=== PATIENT | female | born 1990 | race Caucasian/White ===

== ENCOUNTER 2019-06-03 21:12 | Emergency (ER) | payer OTHER, SELFPAY ==
--- NOTE | ~2019-06-03 | XR_ITS ---
EXAMINATION: XR chest 2V DATE: 06/03/2019 23:10 INDICATION: Cough. Flu positive. TECHNIQUE: PA and lateral views of the chest were obtained. COMPARISON: Chest radiograph dated 08/03/2017 FINDINGS: The lungs remain clear with no focal airspace opacities, pulmonary edema, pleural effusion or pneumot horax. The cardiomediastinal silhouette is normal. Visualized bones and soft tissues are unremarkable . IMPRESSION: 1. Normal chest radiograph. Reviewed, dictated and finalized at location A. RUMENT MAINTENANCE SUPERVISOR IMPRESSION: 1. Normal chest radiograph.
[2019-06-03 21:15] VITALS: BP 136/99; PULSE 88; RESP 18; TEMP 37.1; O2SAT 100
--- NOTE | 2019-06-03 21:26 | ED.URI ---
HPI - URI/Sore Throat General Chief Complaint: Upper Respiratory Infection Stated Complaint: cough Time Seen by Provider: 06/03/19 21:26 Source: patient Mode of arrival: ambulatory Limitations: no limitations History of Present Illness HPI Narrative: The pt is a 28 y/o female who presents to the ED c/o cough onset three days ago. Pt states that she went to her PCP's office for this complaint and CP, where she received a flu swab but no CXR. Pt states that the flu swab was negative, and she received a Zpak for her cough. She also notes that she has taken some DayQuil. Pt states today, she has begun to have a productive cough, along with a choking sensation and SOB. Pt reports CP still, noting it is present when she coughs as well. She reports diaphoresis, chills, sore throat, rhinorrhea, and ALTMAN. She denies N/V/D. MD elicited complaint: cough Onset (ago): day(s) (3) Relieving factors: nothing Associated symptoms: chills, diaphoresis, headache, sore throat, chest pain (Present when she coughs as well), shortness of breath and other (Rhinorrhea, choking sensation) Treatments prior to arrival: cold medicine (DayQuil) and antibiotics Related Data Allergies Allergy/AdvReac Type Severity Reaction Status Date / Time No Known Allergies Allergy Verified 06/03/19 21:34 Review of Systems Review of Systems: All systems reviewed & are unremarkable except as noted in HPI and below Constitutional: Constitutional: Reports chills and Reports excessive sweating ENT: Reports sore throat and Reports other (Rhinorrhea) Cardiovascular: Cardiovascular: Reports chest pain (With coughing as well) Respiratory: Respiratory: Reports cough (Productive) and Reports dyspnea Gastrointestinal: Gastrointestinal: Denies diarrhea, Denies nausea, Denies vomiting and Reports other (Choking sensation) Neurologic: Reports headache(s) PMFSH Past Medical History Medical History (Updated 06/03/19 @ 23:26 by Patt Carney MD) Hyperthyroidism Surgical History Surgical History (Updated 06/03/19 @ 21:29 by Dom Couch) No history of previous surgery Social History Social History (Updated 06/03/19 @ 21:33 by Dom Couch) Smoking status: Never smoker Comments PCP: Dr. Sutton Exam Const: General: cooperative, no acute distress and alert Nutritional Appearance: well nourished Orientation/consciousness: patient oriented x3 Limitations: no limitations HENMT: Mouth: Yes moist mucous membranes and Yes other (Mild pharyngeal erythema) Resp: Effort & Inspection: normal respiratory effort Auscultation: diminished lung sounds bilateral Cardio: Rate: regular rate Rhythm: regular rhythm GI: GI Palp: Yes Soft to palpation and No Tenderness to palpation present (GI) Auscultation: normal bowel sounds Skin: General skin exam: normal color Neuro: General: patient oriented x3 Cognition (Neuro): normal cognition Speech: normal speech Extrem: General: normal to inspection, full ROM and no clubbing, cyanosis or edema Psych: Mental Status: mental status grossly normal Affect: normal affect Attitude: cooperative Course Course Emergency Course: Patient given nebulizer treatment and instructed on MDI use with spacer by respiratory therapist. Patient advised diagnosis of influenza B and symptomatic management. Patient is nontoxic in appearance and appropriate for outpatient care. Patient is beyond time window where she would benefit from antivirals and she does not have any comorbidities that would necessitate antivirals beyond the initial 48-hour time window in which she would get benefit. Vital Signs Vital signs: Vital Signs Temperature 98.8 F 06/03/19 21:15 Pulse Rate 88 06/03/19 21:15 Respiratory Rate 18 06/03/19 21:15 Blood Pressure 136/99 H 06/03/19 21:15 Pulse Oximetry 100 06/03/19 21:15 Temperature 98.8 F 06/03/19 21:15 Pulse Rate 78 06/03/19 22:42 Respiratory Rate 18 06/03/19 22:42 Blood Press
[2019-06-03 22:03] VITALS: PULSE 82; RESP 18
[2019-06-03] MEDS: ALBUTEROL SULFATE NEB 2.5 MG/0.5 ML INH 5 MG INHALATION (22:03)
[2019-06-03] MEDS: IPRATROPIUM BR 0.02% INH SOLN 0.5 MG/2.5 ML VIAL INHALATION (22:03)
[2019-06-03 22:15] VITALS: PULSE 86; RESP 18
[2019-06-03 22:42] VITALS: BP 115/70; PULSE 78; RESP 18; O2SAT 100
[2019-06-03 23:44] VITALS: BP 128/74; PULSE 88; RESP 20; TEMP 37.1; O2SAT 99
== END 2019-06-03 23:48 | disposition home or self-care (01) ==
PROVIDERS: Emergency Provider Emergency Medicine; PCP Internal Medicine
DX: J10.1 Influenza due to other identified influenza virus with other respiratory manifestations (principal)
CPT/HCPCS: 71046; 87804; 94640; 99283

== ENCOUNTER 2021-11-03 22:39 | Emergency (ER) | payer BC, SELFPAY ==
[2021-11-03 22:43] VITALS: BP 138/97; PULSE 95; RESP 18; TEMP 36.4; O2SAT 100
--- NOTE | 2021-11-03 23:30 | ED.GENADULT ---
HPI - General Adult General Chief complaint: Unspecified Stated complaint: has COVID has not slept in 2 days Time Seen by Provider: 11/03/21 22:42 History of Present Illness HPI narrative: 31-year-old female presented the emergency room complaints of insomnia. Patient states that she has not slept for the last 2 days. Patient states that she took a NyQuil tonight and slept for about 30 minutes. Recently diagnosed with COVID, so she is experiencing sinus congestion, postnasal drip, and a productive cough. Related Data Allergies Allergy/AdvReac Type Severity Reaction Status Date / Time No Known Allergies Allergy Verified 06/03/19 21:34 Review of Systems Review of Systems: CONSTITUTIONAL: Denies fever, chills, or sweats. EYES: Denies visual changes, redness, or discharge. ENT: Reports rhinorrhea, congestion, sore throat, or otalgia. CARDIOVASCULAR: Denies chest pain, palpitations, or edema. RESPIRATORY: Reports cough GASTROINTESTINAL: Denies abdominal pain, nausea, vomiting, or diarrhea. GENITOURINARY: Denies dysuria or hematuria. SKIN: Denies rash or itching. MUSCULOSKELETAL: Denies back pain, joint pain, or myalgia. NEUROLOGIC: Denies headache, numbness, dizziness, or weakness. PSYCHIATRIC: Denies anxiety or depression. PMFSH Past Medical History Medical History Hyperthyroidism Surgical History Surgical History No history of previous surgery Social History Social History Smoking status: Never smoker Exam Narrative: GENERAL: Well-appearing, well-nourished, no physical limitations, and in no acute distress. HEAD: Normocephalic, atraumatic. EYES: Conjunctivae normal, PERRLA and EOMI. CHEST: Clear to auscultation. No respiratory distress. No wheezes rales or rhonchi. No tenderness. HEART: Regular rate and rhythm. No murmur heard. Normal peripheral pulses. BACK: No CVA tenderness; No cervical/thoracic/lumbar tenderness, step-offs, bony abnormality; FROM EXTREMITIES: Normal range of motion. No edema. No clubbing or cyanosis SKIN: Warm, dry, no rash. No noted wounds NEURO: No focal deficits. Alert and oriented x3. MAEW. CN's II-XI intact bilaterally, normal gait PSYCH: Cooperative. Anxious. Course Vital Signs Vital signs: Vital Signs Temperature 36.4 C 11/03/21 22:43 Pulse Rate 95 11/03/21 22:43 Respiratory Rate 18 11/03/21 22:43 Blood Pressure 138/97 H 11/03/21 22:43 Pulse Oximetry 100 11/03/21 22:43 Oxygen Delivery Room Air 11/03/21 22:43 Temperature 36.4 C 11/03/21 22:43 Pulse Rate 95 11/03/21 22:43 Respiratory Rate 18 11/03/21 22:43 Blood Pressure 138/97 H 11/03/21 22:43 Pulse Oximetry 100 11/03/21 22:43 Oxygen Delivery Room Air 11/03/21 22:43 Medical Decision Making Vital Signs Vital Signs: Vital Signs Temperature 36.4 C 11/03/21 22:43 Pulse Rate 95 11/03/21 22:43 Respiratory Rate 18 11/03/21 22:43 Blood Pressure 138/97 H 11/03/21 22:43 Pulse Oximetry 100 11/03/21 22:43 Oxygen Delivery Room Air 11/03/21 22:43 Temperature 36.4 C 11/03/21 22:43 Pulse Rate 95 11/03/21 22:43 Respiratory Rate 11/03/21 22:43 Blood Pressure 138/97 H 11/03/21 22:43 Pulse Oximetry 100 11/03/21 22:43 Oxygen Delivery Room Air 11/03/21 22:43 Discharge Plan Discharge Clinical Impression: Insomnia Patient Disposition: Home, Self-Care Condition: Stable Instructions: Antibiotic Form, Insomnia (ED) Prescriptions: New trazodone 50 mg tablet 50 mg PO HS Qty: 30 0RF No Action albuterol sulfate 90 mcg/actuation HFA aerosol inhaler 2 - 4 puff INHALATION Q4H PRN (Reason: shortness of breath or wheezing) Qty: 18 0RF guaifenesin 1,200 mg tablet extended release 12hr 1,200 mg PO BID Qty: 20 0RF Follow-up/Referrals: Michael,Roula
[2021-11-04] MEDS: traZODone HCL 50 MG TABLET PO (00:06)
[2021-11-04 00:10] VITALS: BP 128/89; PULSE 85; RESP 16; O2SAT 100
== END 2021-11-04 00:09 | disposition home or self-care (01) ==
LOC: ANHED 11-04 00:01
PROVIDERS: Emergency Provider Nurse Practitioner Family; PCP Internal Medicine
DX: U07.1 COVID-19 (principal); G47.00 Insomnia, unspecified; E05.90 Thyrotoxicosis, unspecified without thyrotoxic crisis or storm
CPT/HCPCS: 99283; A9270

== ENCOUNTER 2023-04-27 00:41 | Emergency (ER) | payer BC, SELFPAY ==
--- NOTE | ~2023-04-27 | XR_ITS ---
XR chest 2V DATE: 04/27/2023 01:41 INDICATION: Chest tightness. Nose bleed. Weakness. TECHNIQUE: 2 views COMPARISON: June 03, 2019 2 view chest FINDINGS: Normal heart size. No hilar or mediastinal enlargement. No pulmonary infiltrate or consolid ation, pleural effusion or pulmonary vascular congestion or pneumothorax is detected. Surgical clips, lower cervical area, not present on June 03, 2019. Included skeletal structures are unremarkable. IMPRESSION: No active cardiopulmonary disease Postoperative change of the neck since June 03, 2019 Reviewed, dictated and finalized at location A. WORKER
[2023-04-27 00:45] VITALS: BP 130/91; PULSE 78; RESP 15; TEMP 36.2; O2SAT 100
--- NOTE | 2023-04-27 00:55 | ECG_ITS ---
Measurements Intervals [place] Rate: 80 P: 67 TX: 120 QRS: 39 QRSD: 117 T: -16 QT: 373 QTc: 431 Interpretive Statements SINUS RHYTHM INCOMPLETE RIGHT BUNDLE BRANCH BLOCK BORDERLINE ST-T WAVE ABNORMALITY- ANTEROLAT/INF LEADS BORDERLINE ECG NO PREVIOUS ECG AVAILABLE FOR COMPARISON Electronically Signed On 04-27-2023 8:17:32 AIRCRAFT ARMAMENT MECHANIC by Art Rosenthal D.O.
[2023-04-27 01:33] LABS: Basophils Percent Auto 0.6 % (0.2-1.2); Eosinophils Percent Auto 0.5 % (0-4.4); Hematocrit 41.6 % (37.0-47.0); Hemoglobin 13.8 g/dL (12.0-15.0); Immature Granulocyte Absolute 0.01 K/mm3 (0.00-0.031); Immature Granulocyte Percent A 0.2 % (0-0.5); Lymphocytes Percent Auto 23.4 % (18.3-44.2); Mean Corpuscular HGB Conc 33.2 g/dl (32-36); Mean Corpuscular Hemoglobin 27.9 pg (26-34); Monocytes Absolute Auto 0.5 K/mm3 (0.1-0.6); Monocytes Percent Auto 7.8 % (2.6-8.5); Neutrophils Absolute Auto 4.3 K/mm3 (1.3-6.7); Neutrophils Percent Auto 67.5 % (45.5-73.1); Platelet Count Result 212 k/mm3 (150-375); Red Blood Count 4.95 M/mm3 (4.2-5.4); Red Cell Distribution Width 12.4 % (11.5-14.5); White Blood Count 6.4 K/mm3 (4.5-10.0)
[2023-04-27 01:42] LABS: Prothrombin Time 13.3 Seconds (11.1-14.7)
[2023-04-27 01:43] LABS: Partial Thromboplastin Time 33.2 SECONDS (22.3-36.8)
[2023-04-27 01:50] LABS: Alanine Aminotransferase 12 U/L (6-35); Albumin Level 4.7 g/dL (3.5-5.1); Alkaline Phosphatase 59 U/L (38-126); Anion Gap 11 mmol/L (8-16); Aspartate Amino Transferase 22 U/L (14-36); Bilirubin,Total 0.5 mg/dL (0.2-1.3); Blood Urea Nitrogen 9 mg/dL (7-17); Calcium 9.4 mg/dL (8.4-10.2); Carbon Dioxide 31 mmol/L (22-30); Chloride 96 mmol/L (98-107); Estimated CRCL calculation 85 ml/min; Estimated Glomerular Filt Rate > 60; Glucose 106 mg/dL (65-110); Lipase 64 U/L (23-300); Potassium 3.7 mmol/L (3.4-5.0); Sodium 138 mmol/L (137-145)
[2023-04-27 02:02] LABS: Troponin I < 0.012 ng/mL (0.000-0.034)
--- NOTE | 2023-04-27 03:14 | ED.EPISTAXIS ---
HPI - Epistaxis General Chief complaint: Epistaxis Stated complaint: nosebleed, chest tightness Time Seen by Provider: 04/27/23 02:38 Source: patient Limitations: no limitations History of Present Illness HPI Narrative: Patient presents to the ER for epistaxis. Patient states she has had a couple episodes of nosebleeds over the past 24 hours and is worried because it hasn?t gone away. Patient went to the ER in [facility] this AM and was given Afrin upon discharge which she has used twice. 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 Admits to recent URI throughout the past week. Denies recent trauma, blood thinners, history of bleeding disorders, nose picking. Tried pinching nose at home which helps, but seems to keep coming back, admits to it coming from her right nostril, and has had three episodes today. Denies any other complaints aside from feeling anxious, frequently asks if she has a posterior bleed. Denies chest pain, difficulty breathing, syncope. Related Data Allergies Allergy/AdvReac Type Severity Reaction Status Date / Time No Known Allergies Allergy Verified 06/03/19 21:34 Review of Systems Review of Systems: A 10 system review of systems was completed on the patient and is negative except for what is stated in the HPI. Nursing and ancillary documentation was reviewed. [facility] Past Medical History Medical History Hyperthyroidism Surgical History Surgical History No history of previous surgery Social History Social History Smoking status: Never smoker Comments At time of signature, I have reviewed and agree with nursing past medical, surgical, social and family history unless otherwise noted. Please see the nursing chart for further information. There is no relevant family history pertinent to the presenting complaint. Exam Narrative: CONST: No acute distress. Well nourished. HENMT: Head is normocephalic and atraumatic. Moist mucous membranes. No posterior oropharynx erythema. EYES: No conjunctival icterus, injection, or pallor. PERRL. NECK: No meningeal signs. RESP: Able to speak in full sentences. Normal respiratory effort. CTAB. CARDIO: Regular rate. Regular rhythm. 2+ DP and radial pulses bilaterally. GI: Nondistended. No tenderness to palpation. Soft. : No CVA tenderness to palpation. SKIN: No rashes or lesions noted on exposed skin. NEURO: Oriented x3. Moves all extremities. EXTREM: No pedal edema. PSYCH: Appears anxious. HENMT: Face/Nose/Sinus: Normal external nose present, No nasal polyps present, no nasal discharge noted and Epistaxis present on the right anterior source, dried blood present and clots present; no active bleeding Course Vital Signs Vital signs: Vital Signs Temperature 97.1 F L 04/27/23 00:45 Pulse Rate 78 04/27/23 00:45 Respiratory Rate 15 04/27/23 00:45 Blood Pressure 130/91 H 04/27/23 00:45 Pulse Oximetry 100 04/27/23 00:45 Oxygen Delivery Room Air 04/27/23 00:45 Temperature 97.1 F L 04/27/23 00:45 Pulse Rate 76 04/27/23 04:00 Respiratory Rate 15 04/27/23 04:00 Blood Pressure 124/82 04/27/23 04:00 Pulse Oximetry 100 04/27/23 04:00 Oxygen Delivery Room Air 04/27/23 00:45 MDM - Epistaxis MDM Narrative Medical decision making narrative: Patient has a right anterior epistaxis, upon my arrival to the room patient had been holding appropriate pressure for 20 minutes and pressure removed. No active bleeding. Nasal passage irrigated with saline and patient blew nose to clear passages. No active bleeding visualized. Patient monitored in the ER for return and did not have recurrence of bleeding. Labs were obtained in in triage and reviewed by myself and patient informed of all results and potential diagnosis. Patient counseled extensively on supportive care measures
[2023-04-27 04:00] VITALS: BP 124/82; PULSE 76; RESP 15; O2SAT 100
== END 2023-04-27 04:02 | disposition home or self-care (01) ==
LOC: ANHED 03:19
PROVIDERS: Emergency Provider Student in an Organized Health Care Education/Training Program; PCP Internal Medicine
DX: R04.0 Epistaxis (principal); E05.90 Thyrotoxicosis, unspecified without thyrotoxic crisis or storm; I45.10 Unspecified right bundle-branch block; R94.31 Abnormal electrocardiogram [ECG] [EKG]
CPT/HCPCS: 36415; 71046; 80053; 83690; 84484; 85025; 85610; 85730; 93005; 99284

== ENCOUNTER 2024-09-03 20:52 | Emergency (ER) | payer BC, SELFPAY ==
--- OUTSIDE RECORDS SUMMARY | 2024-09-03 20:54 | XMS_ITS | Encounter Summary ---
Author Organization [facility] Address [address] [place] [address] Phone Care Team Providers Care Underwater Roboticist Name Role Phone Roula Rodriguez MD Primary Care Provider Azalea Nance MD Unavailable [phone] Encounter Details Date Type Department Care Team (Late st Contact Info) Description 09/03/2024 Orders Only [facility] Obstetrics and Gynecology [address] 7[address] [place] [address] [place] [address] [place] [address] [address] [place] [address] Supervision of other normal , antepartum (Primary Dx) Social History Tobacco Use Types Packs/Day Years Used Date Smoking Tobacco: Never Passive Smoke Exposure: Never Smokeless Tobacco: Never Alcohol Use Standard Drinks/Week Comments Not Currently 0 (1 standard drink = 0.6 oz pur e alcohol) AUDIT-C Answer Date Recorded Q1: How often do you have a drink containing alcohol? Never 02/25/2024 Q2: How many drinks containi ng alcohol do you have on a typical day when you are drinking? Patient does not drink Q3: How often do you have si x or more drinks on one occasion? Never 02/25/2024 PHQ-2 Answer Date Recorded PHQ-2 Total Score (If total score is 3 or more points, staff should administer the PHQ-9) 0 02/19/2024 [facility] - Occupational Stress Questionnaire Answer Date Recorded Do you feel stress - tense, restless, nervous, or anxious, or unable to sleep at night because your mind is troubled all the time - these days? Only a little 08/23/2024 PRAPARE - Transportation Answer Date Re corded In the past 12 months, has l ack of transportation kept you from medical appointments or from getting medications? No 08/06 In the past 12 months, has l ack of transportation kept you from meetings, work, or from getting things needed for daily living? No 08/23/2024 [place] Depression Scale Answer Date Recorded [place] Depression Scale Total 17 02/25/2024 The thought of harming myself has occurred to me . Never 02/25/2024 Personal Safety Answer Date Recorded Have you ever been in or are you currently in a harmful physical or emotional relationship or is someone making you feel afraid or unsafe? Denies 08/23/2024 Estimated Date of Delivery Comme nts Yes 10/11/2024 Based on last me nstrual period of 01/05/2024 Sex and Gender Information Value Date Recorded Sex Assigned at Not on file Legal Sex Female 8:41 AM REMELT PAN TANK OPERATOR Gender Identity Female 04/27/2020 2:10 PM REMELT PAN TANK OPERATOR Sexual Orientation Straight 04/27/2020 2: 10 PM REMELT PAN TANK OPERATOR documented as of this encounter Miscellaneous Notes * Addendum Note - Ramakrishna Espinal - 09/03/2024 9:52 AM CDTAddended by: RAMAKRISHNA ESPINAL on: 09/03/2024 01:56 PM Modules accepted: Orders documented in this encounter Plan of Treatment Upcoming Encounters Date Type Department Care Team (Late st Contact Info) Description 10/11/2024 Hospital Encounter [address] [address] Roula Kitchen MD [address] [id number] documented as of this encounter Results * Ferritin (09/03/2024 2:02 PM CDT) Ferritin 16 15 - 150 ng/mL Comment:Testing performed by : [address] [address] Blood 09/03/2024 2:02 PM CDT 09/03/2024 2:23 PM CDT Samantha Rush MD LAB BLOOD ORDERABLES F inal Result Performing Organization Address [facility] de Phone Number [facility] [address] [place] [address] * (ABNORMAL) Iron profile w/ IBC (09/03/2024 2:02 PM CDT) Iron 53 35 - 145 mcg/dL Comment:Testing performed by : [address] [address] TIBC 477(H) 250 - 400 mcg/dL [place] Comment:Testing performed by : [address] [address] Transferrin saturation 11(L) 20 - 50 % [place] Comment:Testing performed by : [address] [address] Blood 09/03/2024 2:02 PM CDT 09/03/2024 2:23 PM CDT Samantha Rush MD LAB BLOOD ORDERABLES F inal Result Performing Organization Address [facility] Co de Phone Number [facility] [address] [facility] [place] [address] documented in this encounter Visit Diagnoses Diagnosis Supervision of other normal , antepartum- Primary documented in this encounter Care Teams Underwater Roboticist Relationship Specialty Start Date End Date Roula Rodriguez MD PCP - General Internal Medicine 08/27/18 Azalea Nance MD Consulting Physician Endocrinology Diabetes & Metabolism 09/12/21 documented as of this encounter
--- OUTSIDE RECORDS SUMMARY | 2024-09-03 20:54 | XMS_ITS | Patient Health Record ---
Author Organization [facility] [place] ([address]) Address [address] [place] [address] Care Team Providers Care Adviser Sales Name Role Phone Roula Rodriguez Primary Care Provider Unavaila Janina Lopez Unavailable [phone] [facility], Provider Unavailable Unavailab le Allergies No Known Allergies Reason For Referral No Information Medications Medication SIG (Take, Route, Frequency, Duration) Notes Start Date End Date Status HYDROCHLOROTHIAZIDE 12.5 mg 1 cap(s) orally once a day for 30 day(s) Active FAMOTIDINE 20 mg 1 tab(s) orally 2 times a day 04/21/2022 Active XYZAL 5 mg 1 tablet PO bid for 30 days 04/21/2022 Active hydroCHLOROthiazide 12.5 MG 1 cap(s) orally once a day for 30 day(s) Active TIROSINT-BRIDGET 100 mcg (0.1 mg)/mL 1 mL orally once a day Active Sertraline HCl 50 MG 1 tab(s) orally once a day for 30 day(s) Active Tirosint-BRIDGET 100 MCG (0.1 MG)/ML 1 ML ORALLY ONCE A DAY *Please review and pick correct strength-formulat ion from [facility] options. If intended option is not shown, discontinue and re-order from Quick Search* Active SERTRALINE 50 mg 1 tab(s) orally once a day for 30 day(s) Active Xyzal Allergy 24HR 5 MG 1 tablet PO bid for 30 days 04/21/2022 Active Famotidine 20 MG 1 tab(s) orally 2 times a day 04/21/2022 Active Immunizations Vaccine Route Administration Date Status Comme nts NOC Tdap Unknown 11/17/2012 Administered Portal Infor mation Influenza Unknown 03/08/2022 Administered Portal Infor mation [facility] Quadrivalent Unknown 12/04/2018 Administered Po rtal Information Social History Tobacco Use: Social History Observation Description Date Details (start date - stop date) Never Smoker NA - NA Smoking Smart Form: Question Answer Notes Are you a: never smoker Problems Problem Type SNOMED Code ICD Code Onset Dates Problem Status W/U Status Risk Notes Problem Chronic rhinitis (52611912) Chronic rhinitis (J31.0) Active confirmed Problem Diarrhea (28170366) Diarrhea, unspecified (R19.7) Active confirmed Problem Headache (67260029) Headache (R51) Active confirmed Problem Idiopathic urticaria (L50.1) Active confirmed Encounters Encounter Location Date Provider Diagnosis [facility] [address] [place] [address] 09/21/2023 Provider ZZ-Migration Plan Of Treatment No Information Insurance Providers Payer Name Payer Address Payer Phone Subscriber Number Group Number Insured Name Patient Relationship to Insured Coverage Start Date Coverage End Date [employer] [place] [address] [place] [address] [id number] Jonatahn Hancock Spouse - patient is the spouse of the insured Medical (General) History Medical History History ICD Code Graves' Disease 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
--- OUTSIDE RECORDS SUMMARY | 2024-09-03 20:54 | XMS_ITS ---
Author Organization [facility] [place] ([address]) Address [address] [place] [address] Care Team Providers Care Frame Nailer Name Role Phone Roula Rodriguez Primary Care Provider Unavaila Janina Lopez Unavailable [phone] [facility]Migration, Provider Unavailable Unavailab le REASON FOR VISIT [facility] Encounter Medications Medication SIG (Take, Route, Frequency, Duration) Notes Start Date End Date Status hydroCHLOROthiazide 12.5 MG 1 cap(s) orally once a day for 30 day(s) Active Sertraline HCl 50 MG 1 tab(s) orally once a day for 30 day(s) Active Tirosint-BRIDGET 100 MCG (0.1 MG)/ML 1 ML ORALLY ONCE A DAY *Please review and pick correct strength-formulat ion from [facility] options. If intended option is not shown, discontinue and re-order from Quick Search* Active Xyzal Allergy 24HR 5 MG 1 tablet PO bid for 30 days 04/21/2022 Active Famotidine 20 MG 1 tab(s) orally 2 times a day 04/21/2022 Active Encounters Encounter Location Date [place] [address] 09/21/2023 Provider ZZ-Migration Plan Of Treatment No Information Progress Notes * Christoph HANC[birth year]inDOB:[birth year] (33 yo F)Acc No.[id number]:09/21/2023 Patient: Jed WALLISTati Provider: Liyah Cho :1990 A ge:33 Y S ex:Female Date:09/21/2023 Address:[address] [place], [place] [id number] Pcp:Roula Rodriguez Subjective: * Chief Complaints: * 1 . [facility] En[facility]. * Medical History: * Medications: T aking hydroCHLOROthiazide 12.5 MG Capsule 1 cap(s) orally once a day , Taking Sertraline HCl 50 MG Tablet 1 tab(s) orally once a day , Taking Tirosint-BRIDGET 100 MCG (0.1 MG)/ML SOLUTION 1 ML ORALLY ONCE A DAY , Notes to Pharmacist: *Please review and pick correct strength-formulation from [facility] options. If intended option is not shown, discontinue and re-order from Quick Search*, Taking Xyzal Allergy 24HR 5 MG Tablet 1 tablet PO bid , Taking Famotidine 20 MG Tablet 1 tab(s) orally 2 times a day Objective: * Vitals: Assessment: Plan: * Treatment: * Billing Information: * Visit Code: * Procedure Codes: * Electronic signature of Prov devanter ZZ-Migration on 09/03/2024 at 01:47 PM CDT Sign off status: Pending * Provider: Liyah Cho Date: 0 09/21/2023 Generated for Ena faust/Ivelisse/Ángela on: 09/03/2024 01:47 PM CDT
--- OUTSIDE RECORDS SUMMARY | 2024-09-03 20:54 | XMS_ITS | Referral Summary ---
Author Organization [facility] Address [address] [place] [address] Care Team Providers Care Goldbeater Name Role Phone Roula Rodriguez MD Primary Care Provider Azalea Nance MD Unavailable Encounters Date Type Department Care Team Description 09/03/2024 2:05 PM CDT Lab [facility] [address] [place] [address] Post-surgical hypothyroidism 09/03/2024 1:50 PM CDT Lab [facility] [address] [place] [phone] Supervision of other normal , antepartum 09/03/2024 Orders Only [facility] [address] [place] [address] Health 7th Floor [address] [place] [phone] Samantha Rush MD Supervision of other normal , antepartum (Primary Dx) 08/24/2024 Orders Only [facility] [address] [place] [address] 7th Floor [address] [place] [phone] Erickson Bah MD 08/23/2024 8:21 AM CDT - 08/23/2024 10:09 AM CDT Hospital Encounter [address] [phone] Roula Kitchen MD Whelan, Victoria Conway, MD Discharge Disposition: Discharge to home or self care 08/20/2024 4:15 PM CDT Clinical Support [facility] [address] [place] [phone] 08/20/2024 4:00 PM CDT Office Visit [facility] [address] [place] [address] Floor [address] [place] [phone] Supervision of other normal , antepartum (Primary Dx) 07/30/2024 1:00 PM CDT Clinical Support [facility] [address] [place] [phone] Supervision of other normal , antepartum (Primary Dx); Decreased movements in third trimester, single or unspecified fetus 07/30/2024 1:00 PM CDT Office Visit [facility] [address] [place] [address] Floor [address] [place] [phone] Decreased movements in third trimester, single or unspecified fetus (Primary Dx) 07/22/2024 Results Follow-Up [address] Medical Office Building [address], [address] [place] [address] Azalea Nance MD T4, free, TSH 07/22/2024 4:00 PM CDT Office Visit [facility] [address] [place] [address] [place] [phone] Supervision of normal first , antepartum (Primary Dx) 07/17/2024 8:15 AM CDT Lab [facility] Lab [facility] [place], [place] [phone] Post-surgical hypothyroidism 07/01/2024 6:25 AM CDT Lab [facility] [address] [place] [address] Elevated glucose tolerance test 06/24/2024 Orders Only [facility] [address] [place] [address] Floor [address] [place] [phone] Maria Luz Lopez MD Elevated glucose tolerance test (Primary Dx) 06/23/2024 6:10 PM CDT Lab [facility] [address] [place] [phone] Supervision of other normal , antepartum 06/23/2024 3:30 PM CDT Office Visit [facility] [address] [facility] [place] Outpatient Health 7th Floor [address] [place] [address] Supervision of other normal , antepartum (Primary Dx) 06/18/2024 Results Follow-Up [facility] [address] [facility] [address] [place] [address] Azalea Nance MD T4, free, TSH 06/16/2024 8:00 AM CDT Lab [facility] [address] [place] [address] Post-surgical hypothyroidism from Last 3 Months Allergies Active Allergy Reactions Criticality Noted Date Comments Levothyroxine Hives High 04/05/2022 Medications sertraline (ZOLOFT) 50 mg tablet Take 0.75 tablets (37.5 mg total) by mouth daily 3 Active aspirin 81 mg chewable tabletIndications: Supervision of other normal , antepartum Take 1 tablet (81 mg total) by mouth daily Start taking at 12 weeks and continue until delivery for pre-eclampsia prevention in 30 tablet 11 4 025 Active ondansetron ODT (ZOFRAN-ODT) 4 mg disintegrating tablet Take 1 tablet (4 mg total) by mouth every 8 (eight) hours as needed for nausea or vomiting 20 tablet 3 4 Active levothyroxine sodium (TIROSINT) 137 mcg capsule Take 1 capsule (137 mcg total) by mouth early childhood educator aide before breakfast 90 capsule 3 5 026 Active busPIRone (BUSPAR) 10 mg tablet Take 1 tablet (10 mg total) by mouth 2 (two) times a day 5 Active ursodioL (ACTIGALL) 300 mg capsule Take 1 capsule (300 mg total) by mouth 2 (two) times a day 60 capsule 1 5 026 Active Active Problems Problem Noted Date Diagnosed Date Supervision of other normal , antepartu m 02/12/2024 Overview (09/01/2024): -AMA @ delivery -hyperparathyroidism and hx Graves s/p thyroidectomy, followed by Endo, they are managing meds/labs. Tirosint increased at 19wks to 137 mcg daily. 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 Partner testing neg -h/o abnml pap 04/2020 ASCUS/-HRHPV-->06/2022 NILM/-HRHPV -anxiety/dep, hx of panic attacks, EPDS 17, zoloft dose inc to 50 mg every day, buspar added by psychiatrist, follows closely with therapist -given [facility] info and provided support @ NO[facility] -Nausea/vomiting in , improved with Vit B6/unisom, counseled on behavioral changes--started on zofran 03/09. Avoiding compazine and reglan if possible. -Itching of palms and soles, LFTs WNL, bile acids NML 08/23 [x] Initial BMI: 24.48 [x] Labs: Lab Results Component Value Date ABORH O Positive 02/25/2024 IDCOOMB Negative 02/25/2024 [id number] Nonreactive 02/25/2024 LABRPR Nonreactive 02/25/2024 RUBELIGG Reactive 02/25/2024 HEPBSAG Nonreactive 02/25/2024 [x] Genetic Screening: normal cfdna [x] Baby ASA: recommended @ 12wks [x] 1hr GCT at 24-28wks: 149, NML 3hr gtt [x] Tdap (27-36wks):07/22/2024 MM [x] Flu Shot: rcvd per pt [] RSV Vaccine in season (32.0-36.6): out of season [x] COVID vaccine: vaccinated, counseled on booster [] Rhogam (if Rh neg): n/a O+ [] GBS at 36 wks: [x] [] control method: [] 39 weeks discussion of IOL vs. Expectant management: [] Mode of delivery: [] For C/S bottle of CHG 4% and hand out provided @ 36wks Girl! Teaching: [x] 1st visit [x] 28-30 week [] 36 week HPV Vaccine counseling (<=26 yo): [] Completed vaccine series [] To be ordered prior to discharge on [] To receive at visit [] Declined s/p counseling [x] Not applicable Assessment & Plan (02/25/2024 9:01 AM CRULLER MAKER): - TVUS for dating and viability completed today - labs ordered - Pap NILM, HPV neg 06/2022, hx ASCIS HPV neg in 2020 - GC/CT/trichomonas offered collected - Bowie Depression Scale Total: 17 - Reviewed criteria for ASA 81mg: Minor Criteria (2+ required for Dx): Nulliparity and Age 35+, Rx sent - Flu and Covid vaccination recommendations reviewed, s/p flu vaccine and considering COVID booster - Genetic testing options reviewed, likely planning on NIPT - Carrier testing performed: 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 Artificial tears as needed. Scarring, hypertrophic 07/29/2022 Assessment & Plan (07/29/2022 12:23 AM CDT): Hypertrophic scarring of the skin on examination today. Risks, benefits and alternatives to intralesional injection were discussed. Risks included but were not limited to pain, bleeding, and possible need for additional procedures. Following this discussion, the patient wishes to proceed with anterior neckline intralesional steroid injection. This was performed today without any complications. They will follow-up in 4-6 months. Chronic rhinitis 07/17/2022 Diarrhea 07/17/2022 Headache 07/17/2022 Idiopathic urticaria 07/17/2022 Fatigue 02/08/2022 Hyperparathyroidism 02/05/2022 Goiter 01/25/2022 Overview (01/25/2022): Added automatically from request for surgery [id number] Thyroid eye disease 10/24/2021 Assessment & Plan (11/11/2022 11:27 PM CDT): Evidence of thyroid eye disease in chronic inactive phase status post (s/p) thyroidectomy. Current LALI of 0-1. No indication for surgical or medical intervention at this time. She will return in 4-6 months for repeat evaluation. Assessment & Plan (07/29/2022 12:22 AM CDT): Evidence of thyroid eye disease in chronic inactive phase status post (s/p) thyroidectomy. Current LALI of 0-1. No indication for surgical or medical intervention at this time. She will return in 4-6 months for repeat evaluation. Assessment & Plan (02/02/2022 11:24 AM CDT): Plan for thyroidectomy -- discussed benefit of surgical removal vs REDDY, which posed risk of reactivation. She will follow up in 2-3 months. Assessment & Plan (01/18/2022 8:47 AM CDT): Evidence of thyroid eye disease , less injection from prior, LALI score 0. She will be rescheduling her thyroidectomy surgery (delayed due to COVID). I have instructed her to continue selenium supplementation Repeat TGIS from 10/27 with improvement to 1.1. No indication for surgical or medical intervention at this time. She will return in 6 months for repeat evaluation. Assessment & Plan (10/24/2021 5:20 PM CDT): Evidence of thyroid eye disease with likely mild activity given rectus muscle insertion site injection and intermittent retroorbital pain. Current clinical activity score 2-3. We have discussed treatment options for hyperthyroidism and the implications of these treatments on the ocular component of her condition. Given the risk of worsening of SABIHA with radioactive iodine, I have recommended that she pursue thyroidectomy as a treatment choice. I have instructed her to continue selenium supplementation and we will obtain a repeat TSIG to assess compared to her previous level of 6.67 in April 2018. She will return in 3 months for repeat evaluation. Depression with anxiety 11/13/2018 Assessment & Plan (02/25/2024 8:59 AM CRULLER MAKER): Hx significant for panic attacks since teenager Manages anx, dep with psychiatrist since childhood in [place], saw there provider last week and has been in touch since that appt Had a therapist she sees regularly No thoughts of self harm, hx of SI in the past Recently increased dose of sertraline from 37.5 to 50 mg every day [facility] managing doses Reviewed risks and benefits of SSRIs in , counseling towards importance of stable mood in , will continue to monitor Depression: High Risk (02/25/2024) Bowie Depression Scale Last EPDS Total Score: 17 Last EPDS Self Harm Result: Never Hyperthyroidism 04/17/2018 Assessment & Plan (02/25/2024 8:56 AM CRULLER MAKER): Due to Graves disease, was resistant to antithyroid medications, so s/p thyroidectomy in 01/2022 Now managed by endocrinology for post surgical hypothyroidism Allergic reaction to Levothyroxine (ANUPAMA thomas), so on Tirosint Dose recently adjusted given elevated TSH, Tirosint 112 mcg daily Has a plan for monitoring of TSH 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 Assessment & Plan (07/22/2018 3:45 PM CDT): Continue Tapazole 10 mg daily Recheck levels in 4 wks F/u in 4 m Assessment & Plan (04/17/2018 4:51 PM CRULLER MAKER): It was explained to the patient that the therapeutic approach to Graves' hyperthyroidism consists of both rapid amelioration of symptoms with a beta kadeem and measures aimed at decreasing thyroid hormone synthesis. Options of treatment were discussed and include: the administration of a thionamide, radioiodine ablation, or surgery . Goal of treatment Is to normalize serum thyroid hormone levels, as indicated by a normal serum level of T4 and T3. Normalization of thyroid hormone levels usually translates into improvement of symptoms. Weight gain is a common complaint in patients treated for hyperthyroidism, regardless of what treatment is used. Most patient go back to their original weight and but many patients gain additional weigth A low calorie diet and a exercise program is of paramount importance when addressing this problem. Will check thyroid function levels today and will adjust start Tapazole accordingly. Estimated Date of Delivery Comme nts Yes 10/11/2024 Based on last me nstrual period of 01/05/2024 Immunizations Immunization Administration Dates Next Due DTaP 5 Pertussis 09/25/1993, 2,03/24/1990,01/29,1989 Hep B Vaccine 06/11/2000,02/09/2000,08/07/1999 Hib (HbOC) 12/18/1990, 1,03/24/1990,01/29 Influenza, Quadrivalent, Hig h Dose, Preservative Free, Intrr 03/08/2022 Influenza, Quadrivalent, Spl it, Intramuscular 12/04/2018 Influenza, Quadrivalent, Spl it, Preservative Free, Intramuscular 03/15/2020 Influenza, Trivalent, Preser vative Free, Intramuscular 01/05/2024,03/03/2003 Influenza, Unspecified 01/17/2023(Deferr ed: Patient ill today),01/06/2021(Deferred: Patient Refused),02/08/2020,06/01/2019(Deferre d: Patient Refused),02/27/2019(Deferred: Patient decision),01/12/2019(Deferred: Patient Refused),01/06/2018(Deferred: Patient Refused) MMR 08/14/1994,01/13/1991 Meningococcal MCV4P (Menactra) 11/21/2007 OPV 09/25/1993, 2,01/29/1990,11/11 PPD TEST 08/14/1994,11/15/1992,09/05/1990 TD Preservative Free 10/09/2003 Tdap 07/22/2024, 4,01/07/2015,11/17 Social History Tobacco Use Types Packs/Day Years [...] staff should administer the PHQ-9) 0 02/19/2024 [facility]ational Stress Questionnaire Answer Date Recorded [...] things needed for daily living? No 08/23/2024 Bowie Depression Scale Answer Date Recorded Bowie Depression Scale Total 17 02/25/2024 The thought [...] on file Legal Sex Female 8:41 AM CRULLER MAKER Gender Identity Female 04/27/2020 2:10 PM CRULLER MAKER Sexual Orientation Straight 04/27/2020 2: 10 PM CRULLER MAKER Last Filed Vital Signs Vital Sign Reading Time Taken Comments Blood Pressure 114/78 08/23/2024 8:33 AM CDT Pulse 78 08/23/2024 9:16 AM CDT Temperature 36.8 C (98.3 F) 08/23/2024 8:32 AM CDT Respiratory Rate 16 08/23/2024 8:32 AM CDT Oxygen Saturation 100% 08/23/2024 9:16 AM CDT Inhaled Oxygen Concentration - - Weight 75.6 kg (166 lb 11.2 oz) 08/23/2024 8:32 AM CDT Height 162.6 cm (5' 4) 08/23/2024 8:32 AM CDT Body Mass Index 28.61 08/23/2024 8:32 AM CDT Plan of Treatment Upcoming Encounters Date Type Department Care Team (Late st Contact Info) Description 10/11/2024 Hospital Encounter [address] [phone] Roula Kitchen MD [address] [address] Procedures Procedure Name Priority Date/Time Associated Diagnosis Comments TSH Routine 09/03/2024 2:02 PM CDT Post-surgical hypothyroidism T4, FREE Routine 09/03/2024 2:02 PM CDT Post-surgical hypothyroidism IRON PROFILE W/ IBC Routine 09/03/2024 2 :02 PM CDT Supervision of other normal , antepartum FERRITIN Routine 09/03/2024 2:02 PM CDT Supervision of other normal , antepartum EGFR STAT 08/23/2024 8:45 AM CDT DIFFERENTIAL AUTO STAT 08/23/2024 8:4 5 AM CDT BILE ACIDS, TOTAL Routine 08/23/2024 8:4 5 AM CDT COMPREHENSIVE METABOLIC PANEL STAT 08/23/2024 8:45 AM CDT CBC WITH AUTO DIFFERENTIAL STAT 08/23/2024 8:45 AM CDT NONSTRESS TEST Routine 07/30/2024 1:48 PM CDT Supervision of other normal , antepartum Decreased movements in third trimester, single or unspecified fetus TSH Routine 07/17/2024 8:18 AM CDT Post-surgical hypothyroidism T4, FREE Routine 07/17/2024 8:18 AM CDT Post-surgical hypothyroidism GTT 100GM 3HR GESTATIONAL DIAGNOSTIC Timed 07/01/2024 10:49 AM CDT Elevated glucose tolerance test GTT 100GM 3HR GESTATIONAL DIAGNOSTIC Timed 07/01/2024 10:49 AM CDT Elevated glucose tolerance test GTT 100GM 2HR GESTATIONAL DIAGNOSTIC Timed 07/01/2024 9:46 AM CDT Elevated glucose tolerance test GTT 100GM 1HR GESTATIONAL DIAGNOSTIC Timed 07/01/2024 8:54 AM CDT Elevated glucose tolerance test GTT 100GM FASTING GESTATIONAL DIAGNOSTIC Timed 07/01/2024 7:47 AM CDT Elevated glucose tolerance test CBC WITHOUT DIFFERENTIAL Routine 06/23/2024 5:35 PM CDT Supervision of other normal , antepartum GTT 50GM 1HR GESTATIONAL SCREEN Routine 06/23/2024 5:35 PM CDT Supervision of other normal , antepartum RPR Routine 06/23/2024 5:35 PM CDT Supervision of other normal , antepartum TSH Routine 06/16/2024 8:04 AM CDT Post-surgical hypothyroidism T4, FREE Routine 06/16/2024 8:04 AM CDT Post-surgical hypothyroidism HEPATITIS C ANTIBODY Routine 02/25/2024 9:46 AM CRULLER MAKER Supervision of other normal , antepartum PAP AND HIGH RISK HPV, REFLEX TO GENOTYPING Routine 06/07/2022 9:09 AM CRULLER MAKER Well woman exam from Last 3 Months or Most Recently Relevant to Health Maintenance Results * (ABNORMAL) Iron profile w/ IBC (09/03/2024 2:02 PM CDT) Iron 53 35 - 145 mcg/dL Comment:Testing performed by : [address] [id number] TIBC 477(H) 250 - 400 mcg/dL [place] Comment:Testing performed by : [address] [address] Transferrin saturation 11(L) 20 - 50 % [place] Comment:Testing performed by : [address] [address] Blood 09/03/2024 2:02 PM CDT 09/03/2024 2:23 PM CDT us Samantha Rush MD LAB BLOOD ORDERABLES F inal Result Performing Organization Address City/[facility]/ZIP Co de Phone Number [id number] [place] [address] * (ABNORMAL) TSH (09/03/2024 2:02 PM CDT) Thyroid Stimulating Hormone 9.47(H) 0.30 - 4.20 mcIUnit/mL Comment:Testing performed by : [address] [address] Blood 09/03/2024 2:02 PM CDT 09/03/2024 2:23 PM CDT us Azalea Nance MD LAB BLOOD ORDERABLES Final Re sult [address] [place] [address] * T4, free (09/03/2024 2:02 PM CDT) Pathologist [facility] Free T4 1.10 0.90 - 1.70 ng/dL Comment:Testing performed by : [facility], [address] [place] [address]., [id number] Blood 09/03/2024 2:02 PM CDT 09/03/2024 2:23 PM CDT us Azalea Nance MD LAB BLOOD ORDERABLES Final Re sult Performing Organization Address City/[facility] Co de Phone Number [id number] [email or web address] [address] * Ferritin (09/03/2024 2:02 PM CDT) [facility] Ferritin 16 15 - 150 ng/mL Comment:Testing performed by : [facility], [address] [place] [address]., [id number] Blood 09/03/2024 2:02 PM CDT 09/03/2024 2:23 PM CDT us Samantha Rush MD LAB BLOOD ORDERABLES F inal Result Performing Organization Address [facility] de Phone Number [address] [place] [address] * eGFR (08/23/2024 8:45 AM CDT) [facility] eGFR >90 >=60 mL/min/1. 73 m2 Comment: Interpretive Data Reference Interval Normal >/= 90 mL/min/1.73m2 Mildly decreased* 60 - 89 mL/min/1.73m2 Mildly to moderately decreased 45 - 59 mL/min/1.73m2 Moderately to severely decreased 30 - 44 mL/min/1.73m2 Severely decreased 15 - 29 mL/min/1.73m2 Kidney Failure < 15 mL/min/1.73m2 *Relative to young adult level Estimated glomerular filtration rate is determined by the 2020 CKD-EPI equation recommended by the National Kidney Foundation (A Unifying Approach to GFR Estimation: Recommendations of the NKF-ASK Task Force on Reassessing the Inclusion of Race in Diagnosing Kidney Disease, JASN 2020). The CKD-EPI equation should not be used for patients with unstable renal function and has not been validated in children and those over 70. Current interpretive data was last reviewed 2021. Blood 08/23/2024 8:45 AM CDT 08/23/2024 8:57 AM CDT Pooja Childs NP LAB BLOOD ORD ERABLES Final Result [facility] [place] [address] * Differential, auto (08/23/2024 8:45 AM CDT) Neutrophil abs 5.53 1.50 - 6.50 K/cumm Imm gran abs 0.06 0.00 - 0.10 K/cumm [facility] Lymphocyte abs 1.64 0.80 - 3.30 K/cumm [facility] Monocyte abs 0.56 0.20 - 0.80 K/cumm [facility] Eosinophil abs 0.11 0.00 - 0.50 K/cumm [facility] Basophil abs 0.04 0.00 - 0.10 K/cumm [facility] Neutrophil pct 69.5 % [facility] Comment: Interpretive Data Percent cell count reference ranges are not reported, since discordance with absolute values may lead to misinterpretation of CBC data. Current Interpretive Data was last revised on 2017. Imm gran pct 0.8 % [facility] Comment: Interpretive Data Percent cell count reference ranges are not reported, since discordance with absolute values may lead to misinterpretation of CBC data. Current Interpretive Data was last revised on 2017. Lymphocyte pct 20.7 % [facility] Comment: Interpretive Data Percent cell count reference ranges are not reported, since discordance with absolute values may lead to misinterpretation of CBC data. Current Interpretive Data was last revised on 2017. Monocyte pct 7.1 % [facility] Comment: Interpretive Data Percent cell count reference ranges are not reported, since discordance with absolute values may lead to misinterpretation of CBC data. Current Interpretive Data was last revised on 2017. Eosinophil pct 1.4 % [facility] Comment: Interpretive Data Percent cell count reference ranges are not reported, since discordance with absolute values may lead to misinterpretation of CBC data. Current Interpretive Data was last revised on 2017. Basophil pct 0.5 % [facility] Comment: Interpretive Data Percent cell count reference ranges are not reported, since discordance with absolute values may lead to misinterpretation of CBC data. Current Interpretive Data was last revised on 2017. Blood 08/23/2024 8:45 AM CDT 08/23/2024 8:57 AM CDT us Pooja Childs CATEGORY DEVELOPMENT ANALYST LAB BLOOD ORD ERABLES Final Result [facility] [place] [address] * (ABNORMAL) CBC with auto differential (08/23/2024 8:45 AM CDT) WBC 7.94 3.80 - 9.90 K/cumm Hgb 10.4(L) 11.9 - 15.5 g/dL [facility] Hct 30.9(L) 35.6 - 45.5 % [facility] Plt 201 150 - 400 K/cumm [facility] MPV 10.6 9.1 - 12.3 fL [facility] RBC 3.99 3.90 - 5.20 M/cumm [facility] MCV 77.4(L) 81.3 - 96.4 fL [facility] MCH 26.1(L) 27.1 - 33.3 pg [facility] MCHC 33.7 32.3 - 35.7 g/dL [facility] RDW CV 13.2 11.1 - 14.9 % [facility] RDW SD 36.8 35.7 - 48.1 fL [facility] NRBC abs 0.00 0.00 - 0.01 K/cumm [facility] Blood 08/23/2024 8:45 AM CDT 08/23/2024 8:57 AM CDT [facility] BLOOD ORD ERABLES Final Result Performing Organization Address City/[facility]/ZIP Co de Phone Number [facility] [place] [address] * Bile acids (08/23/2024 8:45 AM CDT) Pathologist [facility] Bile acids 2 <=10 mcmol/L [place] ref Lab Comment: Test Performed by: [place] [address] Porcelain Turner: Cecilio Yao Ph.D.; CLIA# [id number] Blood 08/23/2024 8:45 AM CDT 08/23/2024 10:09 AM CDT [facility] LAB BLOOD ORD ERABLES Final Result Performing Organization Address [facility]/ZIP Co de Phone Number [facility] [place] [address] [place] ref Lab * (ABNORMAL) Comprehensive metabolic panel (08/23/2024 8:45 AM CDT) Pathologist [facility] [place] Sodium 138 135 - 145 mmol/L Potassium, pl 3.9 3.3 - 4.9 mmol/L [facility] Chloride 104 97 - 110 mmol/L [facility] CO2 24 22 - 32 mmol/L [facility] Anion gap 10 2 - 15 mmol/L [facility] BUN 5(L) 6 - 25 mg/dL [facility] Creatinine 0.68 0.60 - 1.10 mg/dL [facility] Glucose 98 70 - 199 mg/dL [facility] Comment: Interpretive Data Fasting glucose >/= 126 mg/dl is diagnostic for diabetes. Fasting is defined as no caloric intake for at least 8 hours. Fasting glucose between 100 mg/dl to 125 mg/dl is diagnostic of prediabetes. In a patient with classic symptoms of hyperglycemia or hyperglycemic crisis, a random glucose >/= 200 mg/dl is diagnostic for diabetes. In the absence of unequivocal hyperglycemia, results should be confirmed by repeat testing. The classification and Diagnosis of Diabetes Diabetes Care 2021; 46: S19-S40. Current interpretive data was last revised 2022. Calcium 8.5 8.5 - 10.3 mg/dL [facility] Bilirubin, total 0.3 0.1 - 1.2 mg/dL [facility] Protein, pl 6.4(L) 6.5 - 8.5 g/dL [facility] Albumin 3.3(L) 3.5 - 5.0 g/dL [facility] Alk phos 108 40 - 130 Units/L [facility] ALT 11 7 - 45 Units/L [facility] AST 18 10 - 45 Units/L [facility] Blood 08/23/2024 8:45 AM CDT 08/23/2024 8:57 AM CDT us Pooja Childs NP LAB BLOOD ORD ERABLES Final Result [facility] [place] [address] * nonstress test - (07/30/2024 1:48 PM CDT) us Tasha Rodriguez CATEGORY DEVELOPMENT ANALYST OB GYNE ORDERABLES F inal Result * TSH (07/17/2024 8:18 AM CDT) Thyroid Stimulating Hormone 1.84 0.30 - 4.20 mcIUnit/mL Comment:Testing performed by : [facility], [address] [place] [address], [place]., [address] Blood 07/17/2024 8:18 AM CDT 07/17/2024 8:34 AM CDT us Azalea Nance MD LAB BLOOD ORDERABLES Final Re sult [facility] [address] [place] [address] * T4, free (07/17/2024 8:18 AM CDT) Free T4 1.26 0.90 - 1.70 ng/dL Comment:Testing performed by : [address] [address] Blood 07/17/2024 8:18 AM CDT 07/17/2024 8:34 AM CDT Azalea Nance MD LAB BLOOD ORDERABLES Final Re sult Performing Organization Address [facility]/ZIP Co de Phone Number [address] [address] * GTT 100gm 3hr gestational diagnostic (07/01/2024 10:49 AM CDT) GTT 100g 3h gest 115 <=139 mg/dL Comment:Testing performed by : [address] [address] Blood 07/01/2024 10:4 9 AM CDT 07/01/2024 10:58 AM CDT Maria Luz Lopez MD LAB BLOOD ORDERABLES F inal Result Performing Organization Address [facility] Co de Phone Number [address] [address] * GTT 100gm 2hr gestational diagnostic (07/01/2024 9:46 AM CDT) GTT 100g 2h gest 127 <=154 mg/dL Comment:Testing performed by : [address] [address] Blood 07/01/2024 9:46 AM CDT 07/01/2024 10:39 AM CDT Maria Luz Lopez MD LAB BLOOD ORDERABLES F inal Result Performing Organization Address City/State/[facility] de Phone Number [facility] [place] [address] * GTT 100gm 1hr gestational diagnostic (07/01/2024 8:54 AM CDT) GTT 100g 1h gest 142 <=179 mg/dL Comment:Testing performed by : [address] [address] Blood 07/01/2024 8:54 AM CDT 07/01/2024 9:22 AM CDT Maria Luz Lopez MD LAB BLOOD ORDERABLES F inal Result Performing Organization Address [facility] de Phone Number [place] [phone] [place] [address] * GTT 100gm fasting gestational diagnostic (07/01/2024 7:47 AM CDT) GTT 100g fasting gest 88 <=94 mg/dL Comment: Interpretive data 100 gram 3 hour Gestational Diabetes Diagnostic Diagnostic criteria require that 2 or more of the following criteria be met: Fasting: > or = to 95 mg/dL 1 hour: > or = to 180 mg/dL 2 hour: > or = to 155 mg/dL 3 hour: > or = to 140 mg/dL Reference Interval Info: Micky Martinez,et al. DiegoAramis Compared with National Diabetes Data Group Criteria for Diagnosing Gestational Diabetes. Obstetrics and Gynecology 2016:127 (5): 893-898. Diabetes Care 2020; 43(Suppl 1):S14-31 Current interpretive data was last revised 2020. Testing performed by: [address] [address] Blood 07/01/2024 7:47 AM CDT 07/01/2024 8:21 AM CDT Maria Luz Lopez MD LAB BLOOD ORDERABLES F inal Result Performing Organization Address [facility]/ZIP Co de Phone Number [place] [phone] [facility] Department [place] [address] * (ABNORMAL) GTT 50gm 1hr gestational screen (06/23/2024 5:35 PM CDT) Pathologist [facility] [place] GTT 50g gest screen 149(H) <=140 mg/dL Comment: Interpretive Data Used for suspected gestational diabetes. The screening test uses 50 grams of glucose with sample obtained 1 hr later. Normal range: < 140 mg/dL. A glucose value of >140 mg/dL generally indicates the need for a full diagnostic tolerance test. Reference Interval Info: Diabetes Care 2005, Vol 28. Supplement 1,S37-S42. Report of the Expert Committee on the Diagnosis and Classification of Diabetes Mellitus. Diabetes Care 2020; 43(Supplement 1):S14-31. Current interpretive data was last revised on 2020. Blood 06/23/2024 5:35 PM CDT 06/23/2024 5:49 PM CDT Maria Luz Lopez MD LAB BLOOD ORDERABLES F inal Result Performing Organization Address [facility]/ZIP Co de Phone Number [facility] Department [place] [address] * RPR Blood (06/23/2024 5:35 PM CDT) Pathologist [facility] [place] RPR Nonreactive Nonreactive Blood 06/23/2024 5:35 PM CDT 06/23/2024 5:49 PM CDT Maria Luz Lopez MD LAB MICROBIOLOGY - GEN ERAL ORDERABLES Final Result Performing Organization Address [facility]/ZIP Co de Phone Number [facility] Department [place] [address] * (ABNORMAL) CBC without differential (06/23/2024 5:35 PM CDT) Pathologist [facility] WBC 9.2 3.8 - 9.9 K/cumm Hgb 11.6(L) 11.9 - 15.5 g/dL [facility] Hct 33.8(L) 35.6 - 45.5 % [facility] Plt 186 150 - 400 K/cumm [facility] MPV 10.0 9.1 - 12.3 fL [facility] RBC 3.96 3.90 - 5.20 M/cumm [facility] MCV 85.4 81.3 - 96.4 fL [facility] MCH 29.3 27.1 - 33.3 pg [facility] MCHC 34.3 32.3 - 35.7 g/dL [facility] RDW CV 12.1 11.1 - 14.9 % [facility] RDW SD 37.5 35.7 - 48.1 fL [facility] NRBC abs 0.00 0.00 - 0.01 K/cumm [facility] Blood 06/23/2024 5:35 PM CDT 06/23/2024 5:49 PM CDT us Maria Luz Lopez MD LAB BLOOD ORDERABLES F inal Result [facility] [place] [address] * TSH (06/16/2024 8:04 AM CDT) [facility] Thyroid Stimulating Hormone 1.27 0.30 - 4.20 mcIUnit/mL Comment:Testing performed by : [facility], [address] [place] [address]., [address] Blood 06/16/2024 8:04 AM CDT 06/16/2024 8:19 AM CDT us Azalea Nance MD LAB BLOOD ORDERABLES Final Re sult [facility] [address] [facility] Department [place] [address] * T4, free (06/16/2024 8:04 AM CDT) Free T4 1.23 0.90 - 1.70 ng/dL Comment:Testing performed by : [facility], [address] [place] [address], [place]., [address] Blood 06/16/2024 8:04 AM CDT 06/16/2024 8:19 AM CDT us Azalea Nance MD LAB BLOOD ORDERABLES Final Re sult [facility] [address] [facility] Department [place] [address] * Hepatitis C antibody Blood (02/25/2024 9:46 AM CRULLER MAKER) Pathologist [facility] [place] Hep C Ab Nonreactive Nonreactive Comment:Antibodies to HCV no t detected. Does NOT exclude the possibility of recent exposure to HCV. Current interpretive data was last revised on 21 Blood 02/25/2024 9:46 AM CRULLER MAKER 02/25/2024 10:47 AM CRULLER MAKER us Samantha Rush MD LAB MICROBIOLOGY - GEN ERAL ORDERABLES Final Result Performing Organization Address City/[facility] Co de Phone Number [facility] Department [place] [address] * Pap and High Risk HPV, reflex to Genotyping (06/07/2022 9:09 AM CRULLER MAKER) Thin prep (Pap test) 06/07/2022 9:09 AM CRULLER MAKER 06/08/2022 9:09 AM CRULLER MAKER Narrative PATHOLOGY [facility] - 06/14/2022 4:46 PM CRULLER MAKER [facility] Department of Pathology [address] [place] [address] Final Report with Addendum Note to Patients: This report may contain a detailed description of human tissue sent by a health care provider to the laboratory for pathologic evaluation. The content of this report is essential for diagnosis and may provide important critical findings. This information may be unfamiliar to patients to review without a medical professional present. It is advised that the patient review this report in the presence of a health care provider who can answer questions and explain the details. Patient Name: JACKELIN MARROQUIN Address: [address] [place] [address] Gender: F : 1990 (Age: 31) Service: Location: Hospital #: [id number] Patient Type: E SPECIMEN Taken: 06/07/2022 Received: 06/08/2022 Accessioned:: 06/11/2022 Reported: 06/14/2022 Physician(s): Juliet Loredo [facility] Diagnosis: Source of Specimen: SCREENING THIN PREP IMAGED PAP w/ HPV: Specimen Adequacy: - Satisfactory for evaluation; endocervical/transformation zone component present General Categorization: - Negative for intraepithelial lesion or malignancy MIGUEL ANGEL Aj(ASCP)MIGUEL ANGEL Chiu(ASCP) Report Electronically Reviewed and Signed Out By HUNTER ChiuASCP) 06/14/2022 16:46:56Addenda: HPV Test Interpretation NEGATIVE for types 16, 18, 31, 33, 35, 39, 45, 51, 52, 56, 58, 59, 66 and 68. Test performed utilizing Gen-Probe Aptima assay. MIGUEL ANGEL Chiu(ASCP)Report Electronically Reviewed and Signed Out By HUNTER ChiuASCP) 06/12/2022 09:57:53 Specimen(s) Received: A: SCREENING THIN PREP IMAGED PAP w/ HPV Clinical History: Last Menstrual Period: 05/26/22 The Pap test is a screening test used to aid in the detection of cervical cancer and its precursors. It should not be the sole means by which malignant and premalignant lesions are diagnosed. Both false negative and false positive results may occur. It also has poor sensitivity for the detection of endometrial lesions and should not be used to evaluate suspected endometrial abnormalities. For these reasons it is most important to obtain Pap tests at regular intervals. The performance characteristics of some immunohistochemical stains, fluorescence in-situ hybridization tests and immunophenotyping by flow cytometry cited in this report (if any) were determined by the Surgical Pathology Department at [facility] as part of an ongoing research associate quality control qc program and in compliance with federally mandated regulations drawn from the Clinical Laboratory Improvement Act of 1988 (CLIA '88). Some of these tests rely on the use of analyte specific reagents and are subject to specific labeling requirements by the US Food and Drug Administration. Such diagnostic tests may only be performed in a facility that is certified by the Department of Health and Human Services as a high complexity laboratory under CLIA '88. The FDA has determined that such clearance or approval is not necessary. This test is used for clinical purposes. It should not be regarded as investigational or for research. Nevertheless, federal rules concerning the medical use of analyte specific reagents require that the following disclaimer be attached to the report: This test was developed and its performance characteristics determined by the Surgical Pathology Department [facility]. It has not been cleared or approved by the U. S. Food and Drug Administration. Juliet Loredo CNM LAB CYTOLOGY ORDERABLES Final Result PATHOLOGY [facility] from Last 3 Months or Most Recently Relevant to Health Maintenance Insurance [employer] [place] Advance Directives For more information, please contact: [phone] * Full Code (Latest Code Status on File) Date Activated Date Inactivated Comments 02/05/2022 2:34 PM 02/06/2022 4:12 PM Care Teams Goldbeater Relationship Specialty Start Date End Date Roula Rodriguez MD PCP - General Internal Medicine 08/27/18 Azalea Nance MD Consulting Physician Endocrinology Diabetes & Metabolism 09/12/21
--- OUTSIDE RECORDS SUMMARY | 2024-09-03 20:54 | XMS_ITS | Data Portability ---
Author Organization [facility], [facility] [address] Address [address] [facility] [facility], [address] [place] [address] Assessment No assessment recorded. Plan of Treatment Reminders Order Date Submit Date Provider Last Modified By Organization Details Last Modified Time Details Appointments None record ed. Lab None record ed. Referral None record ed. Procedures None record ed. Surgeries None record ed. Imaging None record ed. Medication Orders None record ed. Patient TargetsNo targets recorded. Patient InstructionsNo instructions recorded. Reason for Referral None Reported. Results Created Date Observation Date Name Description Value Unit Range Abnormal Flag Note LastModifiedBy Organization Detail LastModifiedTime 09/18/19 20 09/07/2019 MRI, brain + brain stem, w/wo contr ast No observ ation record ed. BARCODE Not Available 2019 12:32:50 09/18/19 20 09/06/2019 MRI, brain + brain stem, w/wo contr ast No observ ation record ed. BARCODE Not Available 2019 12:32:50 Result Notes None recorded. Problems Name Problem SNOMED Code Status Onset Date Resolution Date Notes Provider Name and Address Organization Details Recorded Time Hyperthyroidis m [id number] Active 2019 Pernell BROWER, Schuyler Guerra [address] [facility],[address], [place], [address] , [facility] 0 15:06:04 Problem Notes None recorded. Procedures Surgical History Date Name Laterality Status Provider Name and Address Organization Details Recorded Time 09/16/2019 Audiogram. old completed VINCEFLETCHER AHN, AUD [address] [facility],[address], [place], [address], [facility] 09/16/2019 15:53:00 Imaging Results None recorded. Procedure Notes None recorded. Medical Equipment None Reported. Allergies No known drug allergies Medications Name Sig Start Date Stop Date Status Note LastModified by Organization Details LastModified Time prednisone 10 mg tablet TAKE 4 TABLETS ON DAYS 1 AND 2, THEN TAKE 2 TABLETS ON DAYS 3 AND 4, THEN RESUME NORMAL THERAPY active Not Available Not Available No t Available azithromyci n 250 mg tablet TAKE 2 TABS (500 MG) BY MOUTH TODAY, THAN 1 TAB (250 MG) DAILY FOR 4 DAYS. 09/15 completed Not Available Not Available Not Available fluconazole 150 mg tablet PLEASE SEE ATTACHED FOR DETAILED DIRECTION S 09/15 completed Not Available Not Available Not Available clonazepam 0.5 mg tablet TAKE 1 TABLET BY MOUTH TWO TIMES A DAY active Not Available Not Available No t Available meclizine 25 mg tablet TAKE 1 TABLET BY MOUTH THREE TIMES A DAY active Not Available Not Available No t Available methimazole 5 mg tablet TAKE 2 TABLETS (10 MG TOTAL) BY MOUTH 2 (TWO) TIMES A DAY active Not Available Not Available No t Available sertraline 25 mg tablet TAKE 1 TABLET BY MOUTH TWICE A DAY active Not Available Not Available No t Available ondansetron 4 mg disintegrat ing tablet DISSOLVE 1 TABLET BY MOUTH EVERY 6 TO 8 HOURS NEEDED FOR VOMITING active Not Available Not Available No t Available fluticasone propionate 50 mcg/actuati on nasal spray,suspe nsion USE 2 SPRAYS INTO BOTH NOSTRILS ONCE DAILY 09/15 completed Not Available Not Available Not Available amoxicillin 875 mg-potassiu m clavulanate 125 mg tablet TAKE 1 TABLET BY MOUTH TWICE A DAY FOR 10 DAYS 09/15 completed Not Available Not Available Not Available Ventolin HFA 90 mcg/actuati on aerosol inhaler INHALE 2 4 PUFFS EVERY 4 HOURS NEEDED FOR SHORTNESS OF BREATH/WH EEZING active Not Available Not Available No t Available Viibryd 20 mg tablet TAKE 1 TABLET BY MOUTH EVERY DAY active Not Available Not Available No t Available Vyvanse 10 mg capsule TAKE 1 CAPSULE BY MOUTH EVERY DAY IN THE MORNING active Not Available Not Available No t Available Vitals None Recorded Social History Question Answer Notes LastModified by Organizat ion Details LastModified Time Tobacco Smoking Status Never Smoker Pernell BROWER, Schuyler Guerra [address] [place] [address],[address], [place], [address], [facility] 09/16/2019 15:06:14 What Was The Date Of Your Most Recent Tobacco Screening? 09/16/2019 Information not available 09/16/2019 Sex: Unknown Functional Status Question Answer Note LastModified by Organizat ion Details LastModified Time Do you or have you ever used smokeless tobacco? Never used smokeless tobacco Information not available 09/16/2019 Do you or have you ever used e-cigarettes or vape? Never used electronic cigarettes Information not available 09/16/2019 Mental Status None recorded. Family History Nothing Reported. Medical History No medical history recorded. Gynecological HistoryNo gynecological history recorded. Obstetrics History GPAL:G 0 P 0 0 0 0 Past Encounters Encounter ID Performer Location Encounter Start Date Encounter Closed Date Diagnosis/Indication Diagnosis SNOMED-CT Code Diagnosis ICD10 Code Diagnosis Note [id number] Pernell BROWER, Schuyler Guerra [facility] [address] [facility] [address] [place] [address] 09/16/2019 14:58:18 09/16/2019 16:17:46 M ni re's disease 30119905 H81.03 Discussed that symptoms and findings consistent with bilateral Meniere's disease with right ear the most likely source for vertigo episodes currently. Meniere's disease pathophysi ology discussed in detail. Recommend low sodium diet. Also, recommend continue trial of Dyazide for at least two months. If symptoms improved, then continue Dyazide for one year. Also discussed option of spironolac tone or Diamox for ear fullness management . I mentioned that I have not found oral steroids to be helpful for Meniere's disease symptoms. Also, consider gluten free diet, since there has been one study that indicated gluten free diet was helpful for meniere's disease symptoms. Meniere s disease treatment options for vertigo control discussed including intratympa lilibeth steroids, if dizziness were to return despite low sodium/glu ten free diet. Discussed option for hearing aid for right and possibly left ear depending on patient's daily feelings regarding her hearing loss. Also, discussed that symptom stability or progressio n with Meniere's disease is quite variable. Recommend follow up with Dr. Bo Eric, neurotolog y at [facility] in [place], [place]. [id number] VINCE AHN, CHUNG [facility] 1 [address] [place] [address] 09/16/2019 15:27:40 09/16/2019 15:46:25 Asymmetrical sensorineural hearing loss [id number] H90.5 Health Concerns Section Related Observation LastModified by Organization Detai ls LastModified Time None Recorded Concern Status LastModified by Organization Details LastModified Time None Recorded Advance Directives Directive None Recorded Payers Insurance Date Sequence Insurance Name Policy Number Policy Mchugh Covered Member ID Mchugh Member ID Guarantor Name 09/15/2019 1 [facility] (POS) [id number] Jonathan Rios Santi [id number] Tati Hancock Notes Date Note Type Note Provider Name and Address Organization Details Recorded Time 09/16/2019 text/html Pt notes she has had intermittent episodes of vertigo since November 2018. In September 2018, she developed right ear fullness. Fullness persisted, fluctuated in intensity. In November 2018, right ear fullness worsened and shortly thereafter she had vertigo lasting a few hours that awakened her from sleep. No hearing loss at that time. Since November 2018, she has had approximately five episodes of spontaneous vertigo lasting approximately 20 minutes or so. Last episode was in the Winter of [id number]. She does not recall if ear fullness changed prior to, or after episodes of vertigo. In June 2019, she developed left ear fullness. Now, she has bilateral ear fullness, which she feels is the worst symptom. She was prescribed oral steroids and a diuretic yesterday by her ENT physician. Today, her ear fullness has essentially resolved. No tinnitus. Over the past several weeks she notes periods of difficulty hearing. MRI brain with gadolinium performed on 09/06/2019. No evidence of any retrocochlear lesion on T1 weighted images without/with contrast. Pernell BROWER, Schuyler Guerra [address] [place] [address],[address], [place], [address], [facility] 09/16/2019 17:05:02 OBGyn Episode No OBEpisode recorded.
--- OUTSIDE RECORDS SUMMARY | 2024-09-03 20:54 | XMS_ITS | Encounter Summary ---
Author Organization [facility] Address [address] [place] [address] Phone Care Team Providers Care Shotgun Shell Assembly Machine Adjuster Name Role Phone Roula Rodriguez MD Primary Care Provider Azalea Nance MD Unavailable [phone] Encounter Details Date Type Department Care Team (Late st Contact Info) Description 07/22/2024 Results Follow-Up [facility] Complete Care [address] [facility] Medical Office [address], [address] [place] [address] Azalea Nance MD [address] [place] [address] T4, free, TSH Social History Tobacco Use Types Packs/Day Years [...] staff should administer the PHQ-9) 0 02/19/2024 Estill Depression Scale Answer Date Recorded Estill Depression Scale Total 17 02/25/2024 The thought of harming myself has occurred to me . Never 02/25/2024 Personal Safety Answer Date Recorded Have you ever been in or are you currently in a harmful physical or emotional relationship or is someone making you feel afraid or unsafe? Denies 04/26/2023 Estimated Date of Delivery Comme nts Yes 10/11/2024 Based on last me nstrual period of 01/05/2024 Sex and Gender Information Value Date Recorded Sex Assigned at Not on file Legal Sex Female 8:41 AM FEEDER TENDER Gender Identity Female 04/27/2020 2:10 PM FEEDER TENDER Sexual Orientation Straight 04/27/2020 2: 10 PM FEEDER TENDER documented as of this encounter Miscellaneous Notes * Result Encounter Note - Azalea Nance MD - 07/22/2024 6:32 PM CDT Labs are looking good, hope you are feeling good. Azalea Nance documented in this encounter Plan of Treatment Upcoming Encounters Date Type Department Care Team (Late st Contact Info) Description 10/11/2024 Hospital Encounter [address] [address] Roula Kitchen MD [address] [address] documented as of this encounter Visit Diagnoses Not on filedocumented in this encounter Care Teams Shotgun Shell Assembly Machine Adjuster Relationship Specialty Start Date End Date Roula Rodriguez MD PCP - General Internal Medicine 08/27/18 Azalea Nance MD Consulting Physician Endocrinology Diabetes & Metabolism 09/12/21 documented as of this encounter
--- OUTSIDE RECORDS SUMMARY | 2024-09-03 20:54 | XMS_ITS | Clinical Summary ---
Author Organization [email or web address] Address [address] [place] [address] [address] Care Team Providers Care Tile Layer Drainage Name Role Phone Unavailable Primary Care Provider Unavailabl e Allergies No known active allergies Medications DESVENLAFAXINE SUCCINATE (PRISTIQ ORAL) Take 50 mg by mouth daily. Active DEXTROAMPHETAMIN E/AMPHETAMINE (ADDERALL XR ORAL) Take 10 mg by mouth daily. Active Active Problems No known active problems Family History Medical History Relation Name Comments Healthy Brother Healthy Father Diabetes Maternal Grandfather Heart Disease Maternal Grandfather Stroke Maternal Grandfather Other Maternal Grandmother of emphysema Healthy Mother Thyroid Disease Mother Cancer Paternal Grandfather prostat e Other Paternal Grandfather dementi a Heart Disease Paternal Grandmother Other Paternal Grandmother MS Healthy Sister Relation Name Status Comments Brother Alive Father Alive Maternal Grandfather Maternal Grandmother Mother Alive Paternal Grandfather Alive Paternal Grandmother Sister Alive Social History Tobacco Use Types Packs/Day Years Used Date Smoking Tobacco: Never Smokeless Tobacco: Never Alcohol Use Standard Drinks/Week Comments No 0 (1 standard drink = 0.6 oz pur e alcohol) Comments No Sex and Gender Information Value Date Recorded Sex Assigned at Not on file Legal Sex Female 8:01 PM CDT Gender Identity Not on file Sexual Orientation Not on file Last Filed Vital Signs Vital Sign Reading Time Taken Comments Blood Pressure 115/68 05/12/2015 6:59 AM [employer] Pulse - - Temperature - - Respiratory Rate - - Oxygen Saturation - - Inhaled Oxygen Concentration - - Weight 61.7 kg (136 lb) 05/12/2015 6:59 AM [employer] Height 162.6 cm (5' 4) 05/12/2015 6:59 AM [employer] Body Mass Index 23.34 05/12/2015 6:59 AM [employer] Plan of Treatment Health Maintenance Due Date Last Done Comments DTAP/TDAP/TD VACCINES (1 - Tdap) 2008 HEPATITIS B VACCINES (1 of 3 - 19+ 3-dose series) 2008 PAP SMEAR 09/12/2019 01/17/2015 CERVICAL CANCER SCREENING 01/18/2020 HPV/Cotest (21-29) 01/18/2020 01/17/2015 HPV/Cotest (30-65) 01/18/2020 01/17/2015 INFLUENZA VACCINE (#1) 2023 HPV VACCINES Aged Out No longer eligi ble based on patient's age to complete this topic Procedures Procedure Name Priority Date/Time Associated Diagnosis Comments CERV/VAG CYTO SCREEN PAP RLFX HPV Routine 01/17/2015 12:00 PM CDT Abnormal uterine bleeding from Last 3 Months or Most Recently Relevant to Health Maintenance Results * CERV/VAG CYTOPATH, THIN PREP IMAGR RFLX HPV (CP) (01/17/2015 12:00 PM CDT) CLINICAL INFORMATION HEALTHY 01/21/2015 9:50 AM CDT [facility] LAST MENSTRUAL PERIOD 2014122501/21/2015 9:50 AM CDT [facility] PREV PAP: SEE COMMENT 01/21/2015 9:50 AM CDT [facility] Comment:03/08/11 NEGATIVE PREV BX: SEE COMMENT 01/21/2015 9:50 AM CDT [facility] Comment:Information not prov ided SOURCE Endocervix 01/21/2015 9:50 AM CDT [facility] ADEQUACY: SEE COMMENT 01/21/2015 9:50 AM CDT [facility] Comment: Satisfactory for evaluation. Endocervical/transformation zone component present. INTERPRETATION SEE COMMENT 01/21/2015 9:50 AM CDT [facility] Comment:Negative for intraep ithelial lesion or malignancy. COMMENT SEE COMMENT 01/21/2015 9:50 AM CDT [facility] Comment: This Pap test has been evaluated with computer assisted technology. SOIL SCIENCE PROFESSOR: SEE COMMENT 01/21/2015 9:50 AM CDT [facility] Comment: MAF, CT(ASCP) CT screening location: [facility] [address] [address] Endocervical Collection / Unknown 01/17/2015 12:00 PM CDT 01/17/2015 5:00 PM CDT Narrative [facility] - 01/21/2015 9:50 AM CDT Performing Organization Information: Site ID: [place] [facility] Address: [address] [place] [address] Director: Desiree Phillips MD us Shaun Freeman MD PATHOLOGY/CYTOLOGY ORDERABLES F inal Result [facility] [address] [place] [address], from Last 3 Months or Most Recently Relevant to Health Maintenance Insurance [employer] CHO[employer]
--- OUTSIDE RECORDS SUMMARY | 2024-09-03 20:54 | XMS_ITS | Clinical Summary ---
Author Organization [facility] 8 [facility] Address [address] [place] [address] Care Team Providers Care Coremaker Helper Name Role Phone Roula Rodriguez MD Primary Care Provider Azalea Nance MD Unavailable [phone] Allergies Active Allergy Reactions Criticality Noted Date [...] 1 capsule (137 mcg total) by mouth acquisition cost estimator before breakfast 90 capsule 3 5 026 [...] ABORH O Positive 02/25/2024 IDCOOMB Negative 02/25/2024 [id number] Nonreactive 02/25/2024 LABRPR Nonreactive 02/25/2024 RUBELIGG Reactive [...] applicable Assessment & Plan (02/25/2024 9:01 AM 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 RAIL 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): - TVUS for dating and viability completed today - labs ordered - Pap NILM, HPV neg 06/2022, hx ASCIS HPV neg in 2020 - GC/CT/trichomonas offered collected - Ozark Depression Scale Total: 17 - Reviewed criteria [...] (01/25/2022): Added automatically from request for surgery [id number] Thyroid eye disease 10/24/2021 Assessment & Plan [...] 11/13/2018 Assessment & Plan (02/25/2024 8:59 AM LIGHT RAIL 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): Hx significant for panic attacks since teenager Manages anx, dep with psychiatrist since childhood in [place], saw there provider last week and has been in touch since that appt Had a therapist she sees regularly No thoughts of self harm, hx of SI in the past Recently increased dose of sertraline from 37.5 to 50 mg every day and added in 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 Assessment & Plan (07/22/2018 3:45 PM CDT): Continue Tapazole 10 mg daily Recheck levels in 4 wks F/u in 4 m Assessment & Plan (04/17/2018 4:51 PM LIGHT RAIL 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): It was explained to the patient that [...] on last me nstrual period of 01/05/2024 Encounters Date Type Department Care Team Description 09/03/2024 2:05 PM CDT Lab [facility] Lab [address] [place] [id number] Post-surgical hypothyroidism 09/03/2024 1:50 PM CDT Lab [facility] Lab [address] [place] [phone] Supervision of other normal , antepartum 09/03/2024 Orders Only [facility] Obstetrics and Gynecology [address] [place] [address] Floor [address] [place] [address] Samantha Rush MD Supervision of other normal , antepartum (Primary Dx) 08/24/2024 Orders Only [facility] Obstetrics and Gynecology [address] [place] [address] Floor [address] [place] [address] Erickson Bah MD 08/23/2024 8:21 AM CDT - 08/23/2024 10:09 AM CDT Hospital Encounter [address] [phone] Roula Kitchen MD Whelan, Victoria Conway, MD Discharge Disposition: Discharge to home or self care 08/20/2024 4:15 PM CDT Clinical Support [facility] Obstetrics and Gynecology [address] [place] [id number] 08/20/2024 4:00 PM CDT Office Visit [facility] Obstetrics and Gynecology [address] [place] [address] Floor [address] [place] [phone] Supervision of other normal , antepartum (Primary Dx) 07/30/2024 1:00 PM CDT Clinical Support [facility] Obstetrics and Gynecology [address] [phone] Supervision of other normal , antepartum (Primary Dx); Decreased movements in third trimester, single or unspecified fetus 07/30/2024 1:00 PM CDT Office Visit [facility] Obstetrics and Gynecology [address] [place] [address] Floor [address] [place] [address] Decreased movements in third trimester, single or unspecified fetus (Primary Dx) 07/22/2024 4:00 PM CDT Office Visit [facility] Obstetrics and Gynecology [address] [place] [address] Floor [address] [place] [phone] Supervision of normal first , antepartum (Primary Dx) 07/22/2024 Results Follow-Up [address] Medical Office [address] [place] [phone] Azalea Nance MD T4, free, TSH 07/17/2024 8:15 AM CDT Lab [facility] Lab [address] [place] [phone] Post-surgical hypothyroidism 07/01/2024 6:25 AM CDT Lab [facility] Lab [address] [place] [phone] Elevated glucose tolerance test 06/24/2024 Orders Only [facility] Obstetrics and Gynecology [address] [place] [address] Floor [address] [place] [phone] Maria Luz Lopez MD Elevated glucose tolerance test (Primary Dx) 06/23/2024 6:10 PM CDT Lab [facility] ([facility]) [address] [place] [phone] Supervision of other normal , antepartum 06/23/2024 3:30 PM CDT Office Visit [facility] Obstetrics and Gynecology [address] [facility] [place] 7th Floor [address] [place] [address] Supervision of other normal , antepartum (Primary Dx) 06/18/2024 Results Follow-Up [facility] Endocrinology Metabolism and Lipid [address] [facility] Medical Office [address], [address] [place] [address] Azalea Nance MD T4, free, TSH 06/16/2024 8:00 AM CDT Lab [facility] Lab [address] [place] [phone] Post-surgical hypothyroidism from Last 3 Months Immunizations Immunization Administration Dates Next Due DTaP [...] TD Preservative Free 10/09/2003 Tdap 07/22/2024, 4,01/07/2015,11/17 Surgical History Surgery Date Site/Laterality Comments WISDOM TOOTH EXTRACTION N/A TOTAL THYROIDECTOMY 02/05/2022 Medical History Medical History Date Comments Anxiety disorder Anxiety Depression Depression Thyroid disease Meniere disease Meniere disease, bilateral 08/2019 Osteoarthrosis in spine Graves disease Hypothyroidism Mixed conductive and sensorineural hearing loss Family History Medical History Relation Name Comments Anxiety disorder Brother Ramakrishna Depression Brother Ramakrishna Diabetes Maternal Grandfather Mauri Diabete s mellitus; Depression Mother Dianne Thyroid disease Mother Dianne Ovarian cancer Mother's Sister 1 Cancer Mother's Sister 2 Wendy Migraines Paternal Grandmother Migrain es; Depression Sister Zoe Anesthesia problems Neg Hx Malig Hypertension Neg Hx Malig Hyperthermia Neg Hx Pseudochol deficiency Neg Hx Relation Name Status Comments Brothisaias Durbin Alive Father Alive Maternal Grandfather Mauri Mother Dianne Alive Mother's Sister 1 Mother's Sister 2 Wendy Alive Paternal Grandmother Sister Zoe Alive Social History Tobacco Use Types Packs/Day [...] staff should administer the PHQ-9) 0 02/19/2024 [facility] [place] [facility] - Occupational Stress Questionnaire Answer [...] things needed for daily living? No 08/23/2024 Ozark Depression Scale Answer Date Recorded Ozark Depression Scale Total 17 02/25/2024 The thought [...] on file Legal Sex Female 8:41 AM LIGHT RAIL 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 Gender Identity Female 04/27/2020 2:10 PM LIGHT RAIL 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 Sexual Orientation Straight 04/27/2020 2: 10 PM LIGHT RAIL 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 Obstetrics History Para Term AB IAB SAB Ectopic Multiple Livin g Live Births 1 0 0 0 0 0 0 0 0 0 0 Date Outcome GA Total Labor Labor/2nd/3rd Weight Sex Type Anes PTL Pamella A1 A5 Name Clin Current Summary Episode Dates Number of Fetuses Estimated Date of Delivery 02/12/2024 - Present (09/03/2024) 1 10/11/2024 (set by Samantha Rush MD on 02/25/2024 based on Last Menstrual Period on 01/05/2024) Dating Summary Based On JENNIFER GA Diff Last Menstrual Period on 01/05/2024 10/11/2024 Working Ultrasound on 02/25/2024 10/16/2024 -5d GA:6w4d Vitals Pregravid Weight Height TWG (As of 09/03/2024) Pregrav id BMI 162.6 cm (5' 4) Date GA Fund Present FHR Mvmt BP Weight Edema Alb Glu Ket Dil/ Eff/Sta 024 7w2d 117/7 5 64.7 kg (142 lb 9.6 oz) 0/0/-5 025 20w4d Inpatient data not displayed here. See encounter summary. 025 33w0d Inpatient data not displayed here. See encounter summary. Notes Progress Notes - Hospital En counter - 08/23/2024 - GA:33w0d 08/23/2024 - 33w0d - Pooja Nixon NP Obstetrics H&P Chief Complaint: Itchy feet and palms Estimated Date of Delivery: 10/11/24 Provider: [facility] OBGYN HPI: Jackelin Marroquin is a 33 y.o. female at 33w0d gestation, dated by LMP here today with itching in her hands and feet that started . She has had generalized itching 3 months, hand and feet more recent. Benadryl didn't help. Warm showers help some, but only for a short time. Said the itching has her feeling very irritable. 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 History of Abnormal Pap: 04/2020 ASCUS/-HRHPV-->06/2022 NILM/-HRHPV STD History: None Past Medical History: Diagnosis Date Anxiety disorder Anxiety Depression Depression Graves disease Hypothyroidism Meniere disease Meniere disease, bilateral 08/2019 Mixed conductive and sensorineural hearing loss Osteoarthrosis in spine Thyroid disease Chronic hypertension: No Diabetes: No Asthma: No Past Surgical History: Procedure Laterality Date TOTAL THYROIDECTOMY 02/05/2022 WISDOM TOOTH EXTRACTION N/A Social History Tobacco Use Smoking status: Never Passive exposure: Never Smokeless tobacco: Never Substance and Sexual Activity Drug use: No Sexual activity: Yes Partners: Male control/protection: None Alcohol Use: Not At Risk (02/25/2024) AUDIT-C Frequency of Alcohol Consumption: Never Average Number of Drinks: Patient does not drink Frequency of Binge Drinking: Never Support System: Supported by her partner Yao Safe at home: Yes family history includes Anxiety disorder in her brother; Cancer in her mother's sister; Depression in her brother, mother, and sister; Diabetes in her maternal grandfather; Migraines in her paternal grandmother; Ovarian cancer in her mother's sister; Thyroid disease in her mother. Family history of bleeding or clotting disorders: No Family history of defects, genetic disorders, or developmental delay: No Allergies Allergen Reactions Levothyroxine Hives HOME MEDICATIONS : aspirin 81 mg chewable tablet busPIRone (BUSPAR) 10 mg tablet levothyroxine sodium (TIROSINT) 137 mcg capsule ondansetron ODT (ZOFRAN-ODT) 4 mg disintegrating tablet sertraline (ZOLOFT) 50 mg tablet Review of Sys: Negative except per HPI Vitals: Temp: [36.8 C (98.3 F)] 36.8 C (98.3 F) Pulse: [105] 105 Resp: [16] 16 BP: (114)/(78) 114/78 Physical Exam: General: NAD, mood appropriate Cardiovascular: Regular rate and rhythm Pulmonary: Clear to ausculation bilaterally Abdomen: Gravid, non-tender Extremities: Warm and well perfused Speculum Exam: deferred Cervix: deferred Monitoring: Baseline: 110 bpm, Variability: Moderate, Accelerations: Present and Decelerations: None Uterine Activity: Rare/Irritability Interpretation: Reactive Ultrasound: Posterior placenta Previa: No Labs: Lab Results Component Value Date ABORH O Positive 02/25/2024 IDCOOMB Negative 02/25/2024 [id number] Nonreactive 02/25/2024 LABRPR Nonreactive 06/23/2024 RUBELIGG Reactive 02/25/2024 HEPBSAG Nonreactive 02/25/2024 VZVIGG Reactive 02/25/2024 Assessment and Plan #Itching CBC and CMP normal Bile Acids pending and she knows that we will follow up if needed for abnormal labs She will continue to take Zyrtec daily and will take the Ursodiol if symptoms worsen Suggested warm baths for comfort and told her it was OK for her to use the Benadryl cream if she felt this was helpful The office will call her if something comes back abnormal on her bile acids Plan discussed with Dr. Rush. OK to discharge home. Pooaj Childs NP 08/23/24 Cosigned by Samantha Rush MD at 08/24/2024 7:08 AM CDT Associated attestation - Samantha Rush MD - 08/24/2024 7:08 AM CDT THERAPIST OCCUPATIONAL Christin Childs saw and examined the patient, we discussed her findings, and I am in agreement with the plan based on the discussion. I reviewed the NST independently, see separate procedure note, prior to the decision for discharge home. I did not personally examine the patient. Samantha Rush MD Progress Notes - Office Visi t - 08/20/2024 - GA:32w4d 08/20/2024 - 32w4d - Anat Silva MD Return OB Feeling pretty good. No specific complaints. Denies cramping, bleeding, and leakage. Reports + movements. Reviewed sleep positions and IOL indications. Recheck thyroid at 36 weeks. Progress Notes - Office Visi t - 07/30/2024 - GA:29w4d 07/30/2024 - 29w4d - Tasha Rodriguez NP AUTOMATIC DOOR MECHANIC visit note Chief Complaint: Chief Complaint Routine Visit Subjective: Jackelin Marroquin is a 33 y.o. year old female @ 29w4d who presents for decreased FM. Pt states that last night she was unable to elicit much movement and states she may have felt one movement today driving to the office. Menstrual History: Patient's last menstrual period was 01/05/2024. 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, bilateral Supervision of other normal , antepartum Past Medical History: Diagnosis Date Anxiety disorder Anxiety Depression Depression Graves disease Hypothyroidism Meniere disease Meniere disease, bilateral 08/2019 Osteoarthrosis in spine Thyroid disease Past Surgical History: Procedure Laterality Date TOTAL THYROIDECTOMY 02/05/2022 WISDOM TOOTH EXTRACTION N/A Social History Tobacco Use Smoking status: Never Passive exposure: Never Smokeless tobacco: Never Substance and Sexual Activity Drug use: No Sexual activity: Yes Partners: Male control/protection: None Alcohol Use: Not At Risk (02/25/2024) AUDIT-C Frequency of Alcohol Consumption: Never Average Number of Drinks: Patient does not drink Frequency of Binge Drinking: Never Allergies: Allergies Allergen Reactions Levothyroxine Hives Medications: Current Outpatient Medications: aspirin 81 mg chewable tablet, Take 1 tablet (81 mg total) by mouth daily Start taking at 12 weeks and continue until delivery for pre-eclampsia prevention in , Disp: 30 tablet, Rfl: 11 levothyroxine sodium (TIROSINT) 137 mcg capsule, Take 1 capsule (137 mcg total) by mouth acquisition cost estimator before breakfast, Disp: 90 capsule, Rfl: 3 ondansetron ODT (ZOFRAN-ODT) 4 mg disintegrating tablet, Take 1 tablet (4 mg total) by mouth every 8 (eight) hours as needed for nausea or vomiting, Disp: 20 tablet, Rfl: 3 sertraline (ZOLOFT) 50 mg tablet, Take 0.75 tablets (37.5 mg total) by mouth daily, Disp: , Rfl: Family History Problem Relation Age of Onset Migraines Paternal Grandmother Migraines; Diabetes Maternal Grandfather Diabetes mellitus; Depression Mother Thyroid disease Mother Anxiety disorder Brother Depression Sister Ovarian cancer Mother's Sister Anesthesia problems Neg Hx Malig Hypertension Neg Hx Malig Hyperthermia Neg Hx Pseudochol deficiency Neg Hx Review of Systems: Objective: BP 114/73 Ht 162.6 cm (5' 4) Wt 165 lb 3.2 oz (74.9 kg) LMP 01/05/2024 BMI 28.36 kg/m Physical Exam Constitutional: Appearance: She is normal weight. Pulmonary: Effort: Pulmonary effort is normal. Neurological: Mental Status: She is alert. FHT's: 140 and 1 mvmt noted. Assessment and Plan: Jackelin Marroquin is a 33 y.o. female Diagnoses and all orders for this visit: Decreased movements in third trimester, single or unspecified fetus -reviewed nml fhr and mvmt in clinic. Made suggestions for attempting to feel FM at home. Will do an NST prior to leaving the office, pt agreeable. RTO as scheduled Selena Rodriguez APRN, WHNP-BC 07/30/2024 Progress Notes - Office Visi t - 07/22/2024 - GA:28w3d 07/22/2024 - - Burt Mcdonnell RN Met with Jackelin Marroquin today for 28-30 week education. Patient plans to breastfeed and discussed the benefits of . Patient given booklet reviewing the risks of formula feeding and when to appropriately introduce a pacifier. Given booklet reviewing hand expression, hunger cues, positioning, latch, and when the AAP recommends introducing solids. Aware that coding consultant will meet with patient in the hospital. Discussed colostrum, how to order a breast pump, referred to the breast feeding guide and booklet provided. Discussed the baby friendly initiatives i.e. skin to skin, rooming in and delayed bath. Also discussed birthing classes and how to enroll, reviewed online resources and virtual tour currently being offered by [facility]. A merchandising coordinator list was offered and accepted by the patient. 07/22/2024 - - Tasha Rodriguez NP VETO - Denies lof,bleeding and or ctx's - Reports +FM, ? If 10x/hr, reviewed kick counts and to return to the hosptial if not adequate, pt agreeable. - 2T teaching with Germaine Haney RN - Tdap today RTC in 4 weeks Selena Rodriguez APRN, WHNP-BC Progress Notes - Office Visi t - 06/23/2024 - GA:24w2d 06/23/2024 - 24w2d - Maria Luz Lopez MD Doing ok, having nausea/vomiting - but avoiding medication. Tsh reviewed on 06/16 - discussed wnl 2nd tri labs ordered Progress Notes - Office Visi t - 05/28/2024 - GA:20w4d 05/28/2024 - w - Samantha Rush MD EOB at 20w4d - Supervision of : anatomy US reviewed, AGA 350g (34%), AC 61%, FHT 135 bpm, breech, posterior placenta, normal umbilical cord insertion, normal YAMILET, all structures seen, CL 40.9 mm - S/s: persistent nausea, occasional nausea (18-19 wks vomiting occurred every day, now once per week), 7 lbs weight gain in 1 month (reviewed weight gain goals in and recommended adding in regular exercise), not currently using anti-emetics (zofran x1), working on behavioral modifications, pelvic floor discomfort with plan for PFPT (already has an appt scheduled) - Hyperparathyroidism and hx Graves, s/p thyroidectomy, followed by Endo, Tirosint increased at 19wks to 137 mcg daily, endocrinology monitoring labs - Anxiety/dep, hx of panic attacks, EPDS 17, zoloft dose inc to 50 mg every day, buspar added by psychiatrist, follows closely with therapist - Reviewed expectations for labs to be ordered/recommended with 24 wks T RAIL 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 Progress Notes - Office Visi t - 04/20/2024 - GA:15w1d 04/20/2024 - 15w1d - Maria Luz Lopez MD Doing well Having headaches Mood stable on Zoloft & Buspar - following with psych Resolved nausea Anatomy US in 05/28 T RAIL 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 Progress Notes - Procedure v isit - 03/27/2024 - GA:11w5d 03/27/2024 - 11w5d - Zarina House, RN Cell free DNA obtained x2 sticks with no complications. Pt DOES desire to know sex, informed pt it would be on Headplay/Medabil results when released, pt verbalized understanding. Kit# [id number] T RAIL 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 Progress Notes - Office Visi t - 03/27/2024 - GA:11w5d 03/27/2024 - wd - Erickson Bah MD EOB--11w5d - Doing well today. Presents with , Yao - AMA: Panorama today. Reminded to start ASA 81mg daily at 12 weeks. - Anxiety/Depression: Mood improved without SI/HI, continue sertraline and buspirone - Hyperparathyroidism/Graves: Managed by endocrinology T RAIL 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 Progress Notes - Office Visi t - 02/25/2024 - GA:7w2d 02/25/2024 - 7w2d - Zarina House RN Met with Jackelin Marroquin today for initial/first trimester visit teaching. Discussed the practice reviewed that group is comprised of 1 male physician, 6 female physicians, and 2 female nurse practitioners. Reviewed safe medications, appropriate diet, exercise/activity, travel, animals and vaccinations. Pt had specific questions that were answered appropriately. Discussed PBHS and given handout, pt has psychiatrist and therapist that she feels comfortable with. Verbalized appreciation for patient being open and honest with us about her anxiety and given support. Discussed 81 mg ASA @ 12 weeks d/t increased risk factors for pre-e. Desires cfdna. Pt verbalizes understanding. T RAIL 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 02/25/2024 - 7w2d - Samantha Rush MD [facility] Initial Visit Jackelin Marroquin is a 33 y.o. female at 7w2d weeks gestation (dated by LMP c/w US today, Estimated Date of Delivery: 10/11/24) who is an established patient presenting for an initial obstetrics visit. She is accompanied by Yao. She reports nausea and vomiting that is now improved with Vitamin B6/unisom, but was pretty significant. Associated acid reflux and fatigue. She has had occasional episodes of mild cramping. Denies vaginal bleeding, loss of fluid, contractions. I have reviewed and updated: OB history, AUTOMATIC DOOR MECHANIC history, problem list, past medical history, past surgical history, family history, social history, current medications, allergies, review of systems. Please see appropriate sections for relevant information. Objective: Please see Vitals & Physical Exam in Episode Tab Exam & TVUS Chaperoned by: Dyana Darling Assessment & Plan: Diagnoses and all orders for this visit: Supervision of other normal , antepartum (Primary) Assessment & Plan: - TVUS for dating and viability completed today - labs ordered - Pap NILM, HPV neg 06/2022, hx ASCIS HPV neg in 2020 - GC/CT/trichomonas offered collected - Ozark Depression Scale Total: 17 - Reviewed criteria [...] with Vit B12/unisom, counseled on behavioral changes Orders: - POCT urinalysis dipstick - US Ob 14 Weeks Or Over; Future - Antibody screen; Future - CBC without differential; Future - HIV 1/2 Antibody plus p24 Antigen Blood; Future - RPR Blood; Future - Hepatitis B Surface Antigen Blood; Future - Hepatitis C antibody Blood; Future - Rubella IgG antibody Blood; Future - Varicella Zoster IgG antibody Blood; Future - SURESWAB(R), CT/NG, T VAGINALIS; Future - Urinalysis reflex to microscopic; Future - Urine culture Urine, clean voided; Future - ABO/Rh; Future - US Ob Under 14 Weeks - aspirin 81 mg chewable tablet; Take 1 tablet (81 mg total) by mouth daily Start taking at 12 weeks and continue until delivery for pre-eclampsia prevention in Depression with anxiety Assessment & Plan: Hx significant for panic attacks since teenager Manages anx, dep with psychiatrist since childhood in [place], saw there provider last week and has been in touch since that appt Had a therapist she sees regularly No thoughts of self harm, hx of SI in the past Recently increased dose of sertraline from 37.5 to 50 mg every day and added in [facility], psychiatrist managing doses Reviewed risks and benefits of SSRIs in , counseling towards importance of stable mood in , will continue to monitor Depression: High Risk (02/25/2024) Ozark Depression Scale Last EPDS Total Score: 17 Last EPDS Self Harm Result: Never Hyperthyroidism Assessment & Plan: Due to Graves disease, was resistant to antithyroid medications, so s/p thyroidectomy in 01/2022 Now managed by endocrinology for post surgical hypothyroidism Allergic reaction to Levothyroxine (ANUPAMA thomas), so on Tirosint Dose recently adjusted given elevated TSH, Tirosint 112 mcg daily Has a plan for monitoring of TSH 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 Advised to contact office with any questions or concerns or present to [facility] with any emergent issues. Samantha Rush MD T RAIL 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 Last Filed Vital Signs Vital Sign Reading [...] st Contact Info) Description 10/11/2024 Hospital Encounter [facility] [address] [place] [address] Roula Kitchen MD [address] [facility] [address] [place] [address] Health Maintenance Due Date Last Done Comments Covid-19 Vaccine ( season) 2023 02/14/2021, 05/27/2020, 04/29/2020 Regular Well Visit/Exam 18-64 10/15/2024 10/16/2023, 06/07/2022, 04/27/2020, Additional history exists Depression Screening 02/24/2025 02/25/2024, 02/19/2024, 06/11/2023, Additional history exists Cervical Cancer Screening 06/08/20272022, 04/27/2020, 04/27/2020 DTaP/Tdap/Td Vaccine (10 - Td or Tdap) 07/22/2034 07/22/2024, 01/05/2024, 01/07/2015, Additional history exists Hepatitis B Screening Completed 06/11/2000 , 02/09/2000, 08/07/1999 Influenza Vaccine Completed 01/05/2024, , 03/15/2020, Additional history exists Hepatitis C Screening Completed 02/25/2024 HPV Vaccines Aged Out No longer eligi ble based on patient's age to complete this topic Pneumococcal vaccine <65 Aged Out No longer eligible based on patient's age to complete this topic Varicella Vaccines Discontinued Procedures Procedure Name Priority Date/Time Associated Diagnosis [...] HEPATITIS C ANTIBODY Routine 02/25/2024 9:46 AM LIGHT RAIL 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 Supervision of other normal , antepartum PAP AND HIGH RISK HPV, REFLEX TO GENOTYPING Routine 06/07/2022 9:09 AM LIGHT RAIL 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 Well woman exam from Last 3 Months or Most Recently Relevant to Health Maintenance Results * (ABNORMAL) Iron profile w/ IBC (09/03/2024 2:02 PM CDT) Iron 53 35 - 145 mcg/dL Comment:Testing performed by : [address] [address] TIBC 477(H) 250 - 400 mcg/dL ALLYSON ROSENBERG Comment:Testing performed by : [address] [address] Transferrin saturation 11(L) 20 - 50 % ALLYSON Comment:Testing performed by : [address] [address] Blood 09/03/2024 2:02 PM CDT 09/03/2024 2:23 PM CDT us Samantha Rush MD LAB BLOOD ORDERABLES F inal Result ALLYSON ROSENBERG [address] [facility] [place] [address] * (ABNORMAL) TSH (09/03/2024 2:02 PM CDT) Thyroid Stimulating Hormone 9.47(H) 0.30 - 4.20 mcIUnit/mL Comment:Testing performed by : [address] [address] Blood 09/03/2024 2:02 PM CDT 09/03/2024 2:23 PM CDT Azalea Nance MD LAB BLOOD ORDERABLES Final Re sult Performing Organization Address City/[facility]/ZIP Co de Phone Number [address] [address] * T4, free (09/03/2024 2:02 PM CDT) Pathologist [facility] Free T4 1.10 0.90 - 1.70 ng/dL Comment:Testing performed by : [address] [address] Blood 09/03/2024 2:02 PM CDT 09/03/2024 2:23 PM CDT Azalea Nance MD LAB BLOOD ORDERABLES Final Re sult Performing Organization Address [facility] Co de Phone Number [address] [address] * Ferritin (09/03/2024 2:02 PM CDT) Pathologist [facility] Ferritin 16 15 - 150 ng/mL Comment:Testing performed by : [address] [address] Blood 09/03/2024 2:02 PM CDT 09/03/2024 2:23 PM CDT Samantha Rush MD LAB BLOOD ORDERABLES F inal Result Performing Organization Address [facility] Co de Phone Number [address] [address] * eGFR (08/23/2024 8:45 AM CDT) Pathologist [facility] eGFR >90 >=60 mL/min/1. 73 m2 [...] 08/23/2024 8:57 AM CDT us Pooja Childs THERAPIST OCCUPATIONAL LAB BLOOD ORD ERABLES Final Result [facility] [place] [address] * Differential, auto (08/23/2024 8:45 AM CDT) [facility] Neutrophil abs 5.53 1.50 - 6.50 K/cumm Imm gran abs 0.06 0.00 - 0.10 K/cumm [facility] Lymphocyte abs 1.64 0.80 - 3.30 K/cumm [facility] Monocyte abs 0.56 0.20 - 0.80 K/cumm [facility] Eosinophil abs 0.11 0.00 - 0.50 K/cumm [facility] Basophil abs 0.04 0.00 - 0.10 K/cumm [facility] Neutrophil pct 69.5 % [facility] Comment: Interpretive Data Percent cell count reference ranges are not reported, since discordance with absolute values may lead to misinterpretation of CBC data. Current Interpretive Data was last revised on 2017. Imm gran pct 0.8 % [facility] Comment: Interpretive Data Percent cell count reference ranges are not reported, since discordance with absolute values may lead to misinterpretation of CBC data. Current Interpretive Data was last revised on 2017. Lymphocyte pct 20.7 % [facility] Comment: Interpretive Data Percent cell count reference ranges are not reported, since discordance with absolute values may lead to misinterpretation of CBC data. Current Interpretive Data was last revised on 2017. Monocyte pct 7.1 % [facility] Comment: Interpretive Data Percent cell count reference ranges are not reported, since discordance with absolute values may lead to misinterpretation of CBC data. Current Interpretive Data was last revised on 2017. Eosinophil pct 1.4 % [facility] Comment: Interpretive Data Percent cell count reference ranges are not reported, since discordance with absolute values may lead to misinterpretation of CBC data. Current Interpretive Data was last revised on 2017. Basophil pct 0.5 % [facility] Comment: Interpretive Data Percent cell count reference ranges are not reported, since discordance with absolute values may lead to misinterpretation of CBC data. Current Interpretive Data was last revised on 2017. Blood 08/23/2024 8:45 AM CDT 08/23/2024 8:57 AM CDT Pooja Childs THERAPIST OCCUPATIONAL LAB BLOOD ORD ERABLES Final Result [facility] [place] [address] * (ABNORMAL) CBC with auto differential (08/23/2024 8:45 AM CDT) WBC 7.94 3.80 - 9.90 K/cumm Hgb 10.4(L) 11.9 - 15.5 g/dL [facility] Hct 30.9(L) 35.6 - 45.5 % [facility] Plt 201 150 - 400 K/cumm [facility] MPV 10.6 9.1 - 12.3 fL [facility] RBC 3.99 3.90 - 5.20 M/cumm [facility] MCV 77.4(L) 81.3 - 96.4 fL [facility] MCH 26.1(L) 27.1 - 33.3 pg [facility] MCHC 33.7 32.3 - 35.7 g/dL [facility] RDW CV 13.2 11.1 - 14.9 % [facility] RDW SD 36.8 35.7 - 48.1 fL [facility] NRBC abs 0.00 0.00 - 0.01 K/cumm [facility] Blood 08/23/2024 8:45 AM CDT 08/23/2024 8:57 AM CDT [facility] BLOOD ORD ERABLES Final Result Performing Organization Address [facility] Co de Phone Number [facility] [email or web address] [place] [address] * Bile acids (08/23/2024 8:45 AM CDT) Pathologist [facility] Bile acids 2 <=10 mcmol/L [facility] Comment: Test Performed by: [place] [address] [employer] Boats Caretaker: Cecilio Yao Ph.D.; CLIA# [id number] Blood 08/23/2024 8:45 AM CDT 08/23/2024 10:09 AM CDT [facility] BLOOD ORD ERABLES Final Result Performing Organization Address City/[facility]/ZIP Co de Phone Number [facility] [email or web address] [address] [facility] * (ABNORMAL) Comprehensive metabolic panel (08/23/2024 8:45 AM CDT) Pathologist [facility] Sodium 138 135 - 145 mmol/L Potassium, pl 3.9 3.3 - 4.9 mmol/L [facility] Chloride 104 97 - 110 mmol/L [facility] CO2 24 22 - 32 mmol/L [facility] Anion gap 10 2 - 15 mmol/L [facility] BUN 5(L) 6 - 25 mg/dL [facility] Creatinine 0.68 0.60 - 1.10 mg/dL [facility] Glucose 98 70 - 199 mg/dL [facility] Comment: Interpretive Data Fasting glucose >/= [...] 2022. Calcium 8.5 8.5 - 10.3 mg/dL [facility] Bilirubin, total 0.3 0.1 - 1.2 mg/dL [facility] Protein, pl 6.4(L) 6.5 - 8.5 g/dL [facility] Albumin 3.3(L) 3.5 - 5.0 g/dL [facility] Alk phos 108 40 - 130 Units/L [facility] ALT 11 7 - 45 Units/L [facility] AST 18 10 - 45 Units/L [facility] Blood 08/23/2024 8:45 AM CDT 08/23/2024 8:57 AM CDT us Pooja Childs NP LAB BLOOD ORD ERABLES Final Result [facility] Department [place] [address] * nonstress test - (07/30/2024 1:48 PM CDT) us Tasha Rodriguez THERAPIST OCCUPATIONAL OB GYNE ORDERABLES F inal Result * TSH (07/17/2024 8:18 AM CDT) Thyroid Stimulating Hormone 1.84 0.30 - 4.20 mcIUnit/mL Comment:Testing performed by : [address] [address] Blood 07/17/2024 8:18 AM CDT 07/17/2024 8:34 AM CDT Azalea Nance MD LAB BLOOD ORDERABLES Final Re sult Performing Organization Address City/[facility]/ZIP Co de Phone Number [address] [place] [address] * T4, free (07/17/2024 8:18 AM CDT) Free T4 1.26 0.90 - 1.70 ng/dL Comment:Testing performed by : [address] [address] Blood 07/17/2024 8:18 AM CDT 07/17/2024 8:34 AM CDT Azalea Nance MD LAB BLOOD ORDERABLES Final Re sult Performing Organization Address [facility] Co de Phone Number [address] [place] [place] [address] * GTT 100gm 3hr gestational diagnostic (07/01/2024 10:49 AM CDT) GTT 100g 3h gest 115 <=139 mg/dL Comment:Testing performed by : [address] [address] Blood 07/01/2024 10:4 9 AM CDT 07/01/2024 10:58 AM CDT Maria Luz Lopez MD LAB BLOOD ORDERABLES F inal Result Performing Organization Address City/[facility]/ZIP Co de Phone Number CERNER [address] [address] * GTT 100gm 2hr gestational diagnostic (07/01/2024 9:46 AM CDT) GTT 100g 2h gest 127 <=154 mg/dL Comment:Testing performed by : [address] [address] Blood 07/01/2024 9:46 AM CDT 07/01/2024 10:39 AM CDT Maria Luz Lopez MD LAB BLOOD ORDERABLES F inal Result Performing Organization Address City/[facility] Co de Phone Number ALLYSON [address] [address] * GTT 100gm 1hr gestational diagnostic (07/01/2024 8:54 AM CDT) GTT 100g 1h gest 142 <=179 mg/dL Comment:Testing performed by : [facility], [address] [place] [address]., [address] Blood 07/01/2024 8:54 AM CDT 07/01/2024 9:22 AM CDT Maria Luz Loepz MD LAB BLOOD ORDERABLES F inal Result Performing Organization Address City/[facility]/ZIP Co de Phone Number ALLYSON [address] [address] * GTT 100gm fasting gestational diagnostic (07/01/2024 [...] to 140 mg/dL Reference Interval Info: Micky Martinez et al. [place] Compared with National Diabetes Data Group Criteria for Diagnosing Gestational Diabetes. Obstetrics and Gynecology 2016:127 (5): 893-898. Diabetes Care 2020; 43(Suppl 1):S14-31 Current interpretive data was last revised 2020. Testing performed by: [facility], [address] [place] [address]., [address] Blood 07/01/2024 7:47 AM CDT 07/01/2024 8:21 AM CDT Maria Luz Lopez MD LAB BLOOD ORDERABLES F inal Result [facility] [address] [place] [address] * (ABNORMAL) GTT 50gm 1hr gestational screen (06/23/2024 5:35 PM CDT) GTT 50g gest screen 149(H) <=140 mg/dL [...] MD LAB BLOOD ORDERABLES F inal Result [facility] [place] [address] * RPR Blood (06/23/2024 5:35 PM CDT) RPR Nonreactive Nonreactive Blood 06/23/2024 5:35 PM CDT 06/23/2024 5:49 PM CDT Maria Luz Lopez MD LAB MICROBIOLOGY - GEN ERAL ORDERABLES Final Result Performing Organization Address [facility] Co de Phone Number [facility] Department [place] [address] * (ABNORMAL) CBC without differential (06/23/2024 5:35 PM CDT) Pathologist [facility] WBC 9.2 3.8 - 9.9 K/cumm Hgb 11.6(L) 11.9 - 15.5 g/dL [facility] Hct 33.8(L) 35.6 - 45.5 % [facility] Plt 186 150 - 400 K/cumm [facility] MPV 10.0 9.1 - 12.3 fL [facility] RBC 3.96 3.90 - 5.20 M/cumm [facility] MCV 85.4 81.3 - 96.4 fL [facility] MCH 29.3 27.1 - 33.3 pg [facility] MCHC 34.3 32.3 - 35.7 g/dL [facility] RDW CV 12.1 11.1 - 14.9 % [facility] RDW SD 37.5 35.7 - 48.1 fL [facility] NRBC abs 0.00 0.00 - 0.01 K/cumm [facility] Blood 06/23/2024 5:35 PM CDT 06/23/2024 5:49 PM CDT Maria Luz Lopez MD LAB BLOOD ORDERABLES F inal Result Performing Organization Address [facility]/ZIP Co de Phone Number [facility] Department [place] [address] * TSH (06/16/2024 8:04 AM CDT) Pathologist [facility] Thyroid Stimulating Hormone 1.27 0.30 - 4.20 mcIUnit/mL Comment:Testing performed by : [facility], [address] [place] [address]., [address] Blood 06/16/2024 8:04 AM CDT 06/16/2024 8:19 AM CDT Azalea Nance MD LAB BLOOD ORDERABLES Final Re sult [address] [place] [address] * T4, free (06/16/2024 8:04 AM CDT) Free T4 1.23 0.90 - 1.70 ng/dL Comment:Testing performed by : [facility], [address] [place] [address]., [address] Blood 06/16/2024 8:04 AM CDT 06/16/2024 8:19 AM CDT Azalea Nance MD LAB BLOOD ORDERABLES Final Re sult Performing Organization Address [facility] Co de Phone Number [address] [address] * Hepatitis C antibody Blood (02/25/2024 9:46 AM LIGHT RAIL 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) Hep C Ab Nonreactive Nonreactive Comment:Antibodies to HCV no t detected. Does NOT exclude the possibility of recent exposure to HCV. Current interpretive data was last revised on 21 Blood 02/25/2024 9:46 AM LIGHT RAIL 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 02/25/2024 10:47 AM LIGHT RAIL 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 Samantha Rush MD LAB MICROBIOLOGY - GEN ERAL ORDERABLES Final Result [facility] [place] [address] * Pap and High Risk HPV, reflex to Genotyping (06/07/2022 9:09 AM LIGHT RAIL 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) Thin prep (Pap test) 06/07/2022 9:09 AM LIGHT RAIL 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 06/08/2022 9:09 AM LIGHT RAIL 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 Narrative PATHOLOGY [facility] - 06/14/2022 4:46 PM LIGHT RAIL 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 [facility] Department of Pathology [address] [place] [address] Final Report with Addendum Note to Patients: [...] the details. Patient Name: JACKELIN MARROQUIN Address: [address] [place] [address] Gender: F : 1990 (Age: 31) Service: Location: N : [id number] [facility] #: [id number] Patient Type: [facility] SPECIMEN Taken: 06/07/2022 Received: 06/08/2022 Accessioned:: 06/11/2022 Reported: 06/14/2022 Physician(s): Juliet Loredo, [facility] Diagnosis: Source of Specimen: SCREENING THIN PREP IMAGED PAP w/ HPV: Specimen Adequacy: - Satisfactory for evaluation; endocervical/transformation zone component present General Categorization: - Negative for intraepithelial lesion or malignancy MIGUEL ANGEL Aj(ASCP)MIGUEL ANGEL Chiu(ASCP) Report Electronically Reviewed and Signed Out By MIGUEL ANGEL Chiu(ASC) 06/14/2022 16:46:56Addenda: HPV Test Interpretation NEGATIVE for types 16, 18, 31, 33, 35, 39, 45, 51, 52, 56, 58, 59, 66 and 68. Test performed utilizing Gen-Probe Aptima assay. MIGUEL ANGEL Chiu(ASCP)Report Electronically Reviewed and Signed Out By MIGUEL ANGEL Chiu(ASCP) 06/12/2022 09:57:53 Specimen(s) Received: A: SCREENING THIN [...] determined by the Surgical Pathology Department at [facility] as part of an ongoing quality compliance manager program and in compliance with federally mandated [...] characteristics determined by the Surgical Pathology Department [facility]. It has not been cleared or approved by the U. S. Food and Drug Administration. Juliet MARADIAGA LAB CYTOLOGY ORDERABLES Final Result [facility] from Last 3 Months or Most Recently Relevant to Health Maintenance [place] Advance Directives For more information, please contact: [phone] * Full Code (Latest Code Status on File) Date Activated Date Inactivated Comments 02/05/2022 2:34 PM 02/06/2022 4:12 PM Care Teams Coremaker Helper Relationship Specialty Start Date End Date Roula Rodriguez MD PCP - General Internal Medicine 08/27/18 Azalea Nance MD Consulting Physician Endocrinology Diabetes & Metabolism 09/12/21
--- OUTSIDE RECORDS SUMMARY | 2024-09-03 20:54 | XMS_ITS | Encounter Summary ---
Author Organization [facility] Healthcare Address [address] [place] [address] Care Team Providers Care Navigation Teacher Name Role Phone Roula Rodriguez MD Primary Care Provider Azalea Nance MD Unavailable [phone] Encounter Details Date Type Department Care Team (Late st Contact Info) Description 09/03/2024 2:05 PM CDT Lab [facility] Lab [address] [place] [address] Post-surgical hypothyroidism Social History Tobacco Use Types Packs/Day Years [...] staff should administer the PHQ-9) 0 02/19/2024 [facility] of Occupat ional Health - Occupational Stress [...] things needed for daily living? No 08/23/2024 [place] Depression Scale Answer Date Recorded [place] Depression Scale Total 17 02/25/2024 The thought [...] on file Legal Sex Female 8:41 AM RN SHIFT MGR Gender Identity Female 04/27/2020 2:10 PM RN SHIFT MGR Sexual Orientation Straight 04/27/2020 2: 10 PM RN SHIFT MGR documented as of this encounter Plan of Treatment Upcoming Encounters Date Type Department Care Team (Late st Contact Info) Description 10/11/2024 Hospital Encounter [address] [address] Roula Kitchen MD [address] [address] documented as of this encounter Procedures Procedure Name Priority Date/Time Associated Diagnosis Comments TSH Routine 09/03/2024 2:02 PM CDT Post-surgical hypothyroidism T4, FREE Routine 09/03/2024 2:02 PM CDT Post-surgical hypothyroidism documented in this encounter Results * (ABNORMAL) TSH (09/03/2024 2:02 PM CDT) Thyroid Stimulating Hormone 9.47(H) 0.30 - 4.20 mcIUnit/mL Comment:Testing performed by : [facility], [address] [place] [address], [place]., [address] Blood 09/03/2024 2:02 PM CDT 09/03/2024 2:23 PM CDT Azalea Nance MD LAB BLOOD ORDERABLES Final Re sult Performing Organization Address [facility] Co de Phone Number [address] [address] * T4, free (09/03/2024 2:02 PM CDT) Free T4 1.10 0.90 - 1.70 ng/dL Comment:Testing performed by : [facility], [address] [place] [address], [address] Blood 09/03/2024 2:02 PM CDT 09/03/2024 2:23 PM CDT Azalea Nance MD LAB BLOOD ORDERABLES Final Re sult Performing Organization Address [facility] de Phone Number [address] [address] documented in this encounter Visit Diagnoses Diagnosis Post-surgical hypothyroidism Postsurgical hypothyroidism documented in this encounter Care Teams Navigation Teacher Relationship Specialty Start Date End Date Roula Rodriguez MD PCP - General Internal Medicine 08/27/18 Azalea Nance MD Consulting Physician Endocrinology Diabetes & Metabolism 09/12/21 documented as of this encounter
--- OUTSIDE RECORDS SUMMARY | 2024-09-03 20:54 | XMS_ITS | Encounter Summary ---
Author Organization [facility] Healthcare Address [address] [place] [address] Care Team Providers Care Commissary Manager Name Role Phone Roula Rodriguez MD Primary Care Provider Azalea Nance MD Unavailable [phone] Encounter Details Date Type Department Care Team (Late st Contact Info) Description 09/03/2024 1:50 PM CDT Lab [facility] Lab [address] [place] [id number] Supervision of other normal , antepartum Social History Tobacco Use Types Packs/Day Years [...] staff should administer the PHQ-9) 0 02/19/2024 [facility] of Occupat ional Health - Occupational Stress [...] things needed for daily living? No 08/23/2024 [place] Depression Scale Answer Date Recorded [place] Depression Scale Total 17 02/25/2024 The [...] on file Legal Sex Female 8:41 AM BOX TENDER Gender Identity Female 04/27/2020 2:10 PM BOX TENDER Sexual Orientation Straight 04/27/2020 2: 10 PM BOX TENDER documented as of this encounter Plan of Treatment Upcoming Encounters Date Type Department Care Team (Late st Contact Info) Description 10/11/2024 Hospital Encounter [address] [address] Roula Kitchen MD [address] [address] documented as of this encounter Procedures Procedure Name Priority Date/Time Associated Diagnosis Comments IRON PROFILE W/ IBC Routine 09/03/2024 2 :02 PM CDT Supervision of other normal , antepartum FERRITIN Routine 09/03/2024 2:02 PM CDT Supervision of other normal , antepartum documented in this encounter Results * (ABNORMAL) Iron profile w/ IBC (09/03/2024 2:02 PM CDT) Iron 53 35 - 145 mcg/dL Comment:Testing performed by : [facility], [address] [place] [address]., [address] TIBC 477(H) 250 - 400 mcg/dL [facility]ON ROSENBERG Comment:Testing performed by : [address] [address] Transferrin saturation 11(L) 20 - 50 % ALLYSON ROSENBERG Comment:Testing performed by : [address] [address] Blood 09/03/2024 2:02 PM CDT 09/03/2024 2:23 PM CDT Samantha Rush MD LAB BLOOD ORDERABLES F inal Result Performing Organization Address City/[facility]/ZIP Co de Phone Number [address] [place] [address] * Ferritin (09/03/2024 2:02 PM CDT) Ferritin 16 15 - 150 ng/mL Comment:Testing performed by : [address] [address] Blood 09/03/2024 2:02 PM CDT 09/03/2024 2:23 PM CDT Samantha Rush MD LAB BLOOD ORDERABLES F inal Result Performing Organization Address City/[facility]/ZIP Co de Phone Number [address] [place] [address] documented in this encounter Visit Diagnoses Diagnosis Supervision of other normal , antepartum documented in this encounter Care Teams Commissary Manager Relationship Specialty Start Date End Date Roual Rodriguez MD PCP - General Internal Medicine 08/27/18 Azalea Nance MD Consulting Physician Endocrinology Diabetes & Metabolism 09/12/21 documented as of this encounter
--- OUTSIDE RECORDS SUMMARY | 2024-09-03 20:54 | XMS_ITS | Encounter Summary ---
Author Organization [facility] Address [address] [place] [address] Care Team Providers Care Meteorological Technician Name Role Phone Unavailable Primary Care Provider Unavailabl e Encounter Details Date Type Department Care Team (Late st Contact Info) Description 06/20/2022 Abstract [facility] [address] [address] [place] [address] Fertility, Care Services, [facility] [id number] [place] [address] Social History Tobacco Use Types Packs/Day Years Used Date Smoking Tobacco: Never Smokeless Tobacco: Never Alcohol Use Standard Drinks/Week Comments No 0 (1 standard drink = 0.6 oz pur e alcohol) Comments No Sex and Gender Information Value Date Recorded Sex Assigned at Not on file Legal Sex Female 8:01 PM CDT Gender Identity Not on file Sexual Orientation Not on file documented as of this encounter Plan of Treatment Not on file documented as of this encounter Visit Diagnoses Not on filedocumented in this encounter
[2024-09-03 21:04] VITALS: BP 127/78; PULSE 86; RESP 20; TEMP 36.2; O2SAT 100
--- OUTSIDE RECORDS SUMMARY | 2024-09-03 22:01 | XMS_ITS | Referral Summary ---
Author Organization [facility] 8 [facility] Address [address] [place] [address] Care Team Providers Care Electrician Chief Name Role Phone Roula Rodriguez MD Primary Care Provider Azalea Nance MD Unavailable [phone] Encounters Date Type Department Care Team Description 09/03/2024 2:05 PM CDT Lab [facility] [address] [place] [address] Post-surgical hypothyroidism 09/03/2024 1:50 PM CDT Lab [facility] [address] [place] [address] [phone] Supervision of other normal , antepartum 09/03/2024 Orders Only [facility] Obstetrics and Gynecology [address] [place] [address] Health 7th Floor [address] [place] [phone] Samantha Rush MD Supervision of other normal , antepartum (Primary Dx) 08/24/2024 Orders Only [facility] Obstetrics and Gynecology [address] [place] [address] 7th Floor [address] [place] [phone] Erickson Bah MD 08/23/2024 8:21 AM CDT - 08/23/2024 10:09 AM CDT Hospital Encounter [address] [address] Roula Kitchen MD Whelan, Victoria Conway, MD Discharge Disposition: Discharge to home or self care 08/20/2024 4:15 PM CDT Clinical Support [facility] Obstetrics and Gynecology [address] [place] [address] 08/20/2024 4:00 PM CDT Office Visit [facility] Obstetrics and Gynecology [address] [place] [address] Floor [address] [place] [phone] Supervision of other normal , antepartum (Primary Dx) 07/30/2024 1:00 PM CDT Clinical Support [facility] Obstetrics and Gynecology [address] [place] [phone] Supervision of other normal , antepartum (Primary Dx); Decreased movements in third trimester, single or unspecified fetus 07/30/2024 1:00 PM CDT Office Visit [facility] Obstetrics and Gynecology [address] [place] [address] Floor [address] [place] [phone] Decreased movements in third trimester, single or unspecified fetus (Primary Dx) 07/22/2024 Results Follow-Up [address] Medical Office Building [address], [address] [place] [phone] Azalea Nance MD T4, free, TSH 07/22/2024 4:00 PM CDT Office Visit [facility] Obstetrics and Gynecology [address] [place] [address] [place] [phone] Supervision of normal first , antepartum (Primary Dx) 07/17/2024 8:15 AM CDT Lab [facility] [place], [place] [address] Post-surgical hypothyroidism 07/01/2024 6:25 AM CDT Lab [facility] [address] [place] [address] Elevated glucose tolerance test 06/24/2024 Orders Only [facility] Obstetrics and Gynecology [address] [place] [address] Floor [address] [place] [phone] Maria Luz Lopez MD Elevated glucose tolerance test (Primary Dx) 06/23/2024 6:10 PM CDT Lab [facility] [address] [place] [address] Supervision of other normal , antepartum 06/23/2024 3:30 PM CDT Office Visit [facility] Obstetrics and Gynecology [address] [facility] 7th Floor [address] [place] [address] Supervision of other normal , antepartum (Primary Dx) 06/18/2024 Results Follow-Up [facility] Endocrinology Metabolism and Lipid [address] [facility] [address] [place] [address] Azalea Nance MD T4, free, TSH 06/16/2024 8:00 AM CDT Lab [facility] [address] [place] [address] Post-surgical hypothyroidism from Last 3 Months Allergies [...] 1 capsule (137 mcg total) by mouth bacteriology teacher before breakfast 90 capsule 3 5 026 [...] ABORH O Positive 02/25/2024 IDCOOMB Negative 02/25/2024 [id number] Nonreactive 02/25/2024 LABRPR Nonreactive 02/25/2024 RUBELIGG Reactive [...] applicable Assessment & Plan (02/25/2024 9:01 AM IVORY POLISHER): - TVUS for dating and viability completed today - labs ordered - Pap NILM, HPV neg 06/2022, hx ASCIS HPV neg in 2020 - GC/CT/trichomonas offered collected - [place] Depression Scale Total: 17 - Reviewed criteria [...] (01/25/2022): Added automatically from request for surgery [id number] Thyroid eye disease 10/24/2021 Assessment & Plan [...] 11/13/2018 Assessment & Plan (02/25/2024 8:59 AM IVORY POLISHER): Hx significant for panic attacks since teenager Manages anx, dep with psychiatrist since childhood in [place], saw there provider last week and has been in touch since that appt Had a therapist she sees regularly No thoughts of self harm, hx of SI in the past Recently increased dose of sertraline from 37.5 to 50 mg every day and added in [facility], psychiatrist managing doses Reviewed risks and benefits of SSRIs in , counseling towards importance of stable mood in , will continue to monitor Depression: High Risk (02/25/2024) [place] Depression Scale Last EPDS Total Score: 17 Last EPDS Self Harm Result: Never Hyperthyroidism 04/17/2018 Assessment & Plan (02/25/2024 8:56 AM IVORY POLISHER): Due to Graves disease, was resistant to antithyroid medications, so s/p thyroidectomy in 01/2022 Now managed by endocrinology for post surgical hypothyroidism Allergic reaction to Levothyroxine (ANUPAMA thomas), so on Tirosint Dose recently adjusted given elevated TSH, Tirosint 112 mcg daily Has a plan for monitoring of TSH during with mechanic assistant Thyroid eye disease, stable Assessment & Plan (11/11/2018 3:08 PM CDT): Take Tapazole , 5 mg 4 days a week, M-T Take 10 mg -Sat and Sundays Recheck levels in 6 weeks. Assessment & Plan (07/22/2018 3:45 PM CDT): Continue Tapazole 10 mg daily Recheck levels in 4 wks F/u in 4 m Assessment & Plan (04/17/2018 4:51 PM IVORY POLISHER): It was explained to the patient that [...] staff should administer the PHQ-9) 0 02/19/2024 [facility]ational Stress Questionnaire Answer [...] things needed for daily living? No 08/23/2024 [place] Depression Scale Answer Date Recorded [place] Depression Scale Total 17 02/25/2024 The thought [...] on file Legal Sex Female 8:41 AM IVORY POLISHER Gender Identity Female 04/27/2020 2:10 PM IVORY POLISHER Sexual Orientation Straight 04/27/2020 2: 10 PM IVORY POLISHER Last Filed Vital Signs Vital Sign Reading [...] st Contact Info) Description 10/11/2024 Hospital Encounter [address] [phone] Roula Kitchen MD [address] [address] Procedures Procedure Name Priority Date/Time [...] HEPATITIS C ANTIBODY Routine 02/25/2024 9:46 AM IVORY POLISHER Supervision of other normal , antepartum PAP AND HIGH RISK HPV, REFLEX TO GENOTYPING Routine 06/07/2022 9:09 AM IVORY POLISHER Well woman exam from Last 3 Months or Most Recently Relevant to Health Maintenance Results * (ABNORMAL) Iron profile w/ IBC (09/03/2024 2:02 PM CDT) Iron 53 35 - 145 mcg/dL Comment:Testing performed by : [address] [address] TIBC 477(H) 250 - 400 mcg/dL [facility] Comment:Testing performed by : [address] [address] Transferrin saturation 11(L) 20 - 50 % [facility] Comment:Testing performed by : [address] [address] Blood 09/03/2024 2:02 PM CDT 09/03/2024 2:23 PM CDT us Samantha Rush MD LAB BLOOD ORDERABLES F inal Result Performing Organization Address City/[facility]/ZIP Co de Phone Number [address] [place] [address] * (ABNORMAL) TSH (09/03/2024 2:02 PM CDT) Thyroid Stimulating Hormone 9.47(H) 0.30 - 4.20 mcIUnit/mL Comment:Testing performed by : [address] [address] Blood 09/03/2024 2:02 PM CDT 09/03/2024 2:23 PM CDT us Azalea Nance MD LAB BLOOD ORDERABLES Final Re sult [address] [place] [address] * T4, free (09/03/2024 2:02 PM CDT) Pathologist [facility] Free T4 1.10 0.90 - 1.70 ng/dL Comment:Testing performed by : [facility], [address] [place] [address]., [address] Blood 09/03/2024 2:02 PM CDT 09/03/2024 2:23 PM CDT us Azalea Nance MD LAB BLOOD ORDERABLES Final Re sult Performing Organization Address City/[facility] Co de Phone Number [address] [employer] [place] [address] * Ferritin (09/03/2024 2:02 PM CDT) [facility] Ferritin 16 15 - 150 ng/mL Comment:Testing performed by : [facility], [address] [place] [address]., [address] Blood 09/03/2024 2:02 PM CDT 09/03/2024 2:23 PM CDT us Samantha Rush MD LAB BLOOD ORDERABLES F inal Result Performing Organization Address [facility] de Phone Number [address] [place] [address] * eGFR (08/23/2024 8:45 AM CDT) [facility] eGFR >90 >=60 mL/min/1. 73 m2 Comment: [...] LAB BLOOD ORD ERABLES Final Result [facility] [place] [address] * Differential, auto (08/23/2024 8:45 AM CDT) Neutrophil abs 5.53 1.50 - 6.50 K/cumm Imm gran abs 0.06 0.00 - 0.10 K/cumm [facility] Lymphocyte abs 1.64 0.80 - 3.30 K/cumm [facility] Monocyte abs 0.56 0.20 - 0.80 K/cumm [facility] Eosinophil abs 0.11 0.00 - 0.50 K/cumm [facility] Basophil abs 0.04 0.00 - 0.10 K/cumm [facility] Neutrophil pct 69.5 % [facility] Comment: Interpretive Data Percent cell count reference ranges are not reported, since discordance with absolute values may lead to misinterpretation of CBC data. Current Interpretive Data was last revised on 2017. Imm gran pct 0.8 % [facility] Comment: Interpretive Data Percent cell count reference ranges are not reported, since discordance with absolute values may lead to misinterpretation of CBC data. Current Interpretive Data was last revised on 2017. Lymphocyte pct 20.7 % [facility] Comment: Interpretive Data Percent cell count reference ranges are not reported, since discordance with absolute values may lead to misinterpretation of CBC data. Current Interpretive Data was last revised on 2017. Monocyte pct 7.1 % [facility] Comment: Interpretive Data Percent cell count reference ranges are not reported, since discordance with absolute values may lead to misinterpretation of CBC data. Current Interpretive Data was last revised on 2017. Eosinophil pct 1.4 % [facility] Comment: Interpretive Data Percent cell count reference ranges are not reported, since discordance with absolute values may lead to misinterpretation of CBC data. Current Interpretive Data was last revised on 2017. Basophil pct 0.5 % [facility] Comment: Interpretive Data Percent cell count reference ranges are not reported, since discordance with absolute values may lead to misinterpretation of CBC data. Current Interpretive Data was last revised on 2017. Blood 08/23/2024 8:45 AM CDT 08/23/2024 8:57 AM CDT us Pooja Childs HYPOID GEAR GENERATOR LAB BLOOD ORD ERABLES Final Result [facility] [place] [address] * (ABNORMAL) CBC with auto differential (08/23/2024 8:45 AM CDT) WBC 7.94 3.80 - 9.90 K/cumm Hgb 10.4(L) 11.9 - 15.5 g/dL [facility] Hct 30.9(L) 35.6 - 45.5 % [facility] Plt 201 150 - 400 K/cumm [facility] MPV 10.6 9.1 - 12.3 fL [facility] RBC 3.99 3.90 - 5.20 M/cumm [facility] MCV 77.4(L) 81.3 - 96.4 fL [facility] MCH 26.1(L) 27.1 - 33.3 pg [facility] MCHC 33.7 32.3 - 35.7 g/dL [facility] RDW CV 13.2 11.1 - 14.9 % [facility] RDW SD 36.8 35.7 - 48.1 fL [facility] NRBC abs 0.00 0.00 - 0.01 K/cumm [facility] Blood 08/23/2024 8:45 AM CDT 08/23/2024 8:57 AM CDT [facility] BLOOD ORD ERABLES Final Result Performing Organization Address City/[facility]/ZIP Co de Phone Number [facility] [place] [address] * Bile acids (08/23/2024 8:45 AM CDT) Pathologist [facility] Bile acids 2 <=10 mcmol/L [facility] Comment: Test Performed by: [place] [address] Belt Builder Helper: Cecilio Yao Ph.D.; CLIA# [id number] Blood 08/23/2024 8:45 AM CDT 08/23/2024 10:09 AM CDT [facility] BLOOD ORD ERABLES Final Result Performing Organization Address [facility]/ZIP Co de Phone Number [facility] [place] [place] [address] [facility] * (ABNORMAL) Comprehensive metabolic panel (08/23/2024 8:45 AM CDT) Pathologist [facility] Sodium 138 135 - 145 mmol/L Potassium, pl 3.9 3.3 - 4.9 mmol/L [facility] Chloride 104 97 - 110 mmol/L [facility] CO2 24 22 - 32 mmol/L [facility] Anion gap 10 2 - 15 mmol/L [facility] BUN 5(L) 6 - 25 mg/dL [facility] Creatinine 0.68 0.60 - 1.10 mg/dL [facility] Glucose 98 70 - 199 mg/dL [facility] Comment: Interpretive Data Fasting glucose >/= [...] Calcium 8.5 8.5 - 10.3 mg/dL [facility] Bilirubin, total 0.3 0.1 - 1.2 mg/dL [facility] Protein, pl 6.4(L) 6.5 - 8.5 g/dL [facility] Albumin 3.3(L) 3.5 - 5.0 g/dL [facility] Alk phos 108 40 - 130 Units/L [facility] ALT 11 7 - 45 Units/L [facility] AST 18 10 - 45 Units/L [facility] Blood 08/23/2024 8:45 AM CDT 08/23/2024 8:57 AM CDT us Pooja Childs NP LAB BLOOD ORD ERABLES Final Result [facility] [place] [address] * nonstress test - (07/30/2024 1:48 PM CDT) us Tasha Rodriguez HYPOID GEAR GENERATOR OB GYNE ORDERABLES F inal Result * TSH (07/17/2024 8:18 AM CDT) Thyroid Stimulating Hormone 1.84 0.30 - 4.20 mcIUnit/mL Comment:Testing performed by : [facility], [address] [place] [address], [place]., [address] Blood 07/17/2024 8:18 AM CDT 07/17/2024 8:34 AM CDT us Azalea Nance MD LAB BLOOD ORDERABLES Final Re sult [facility] [address] [place] [address] * T4, free (07/17/2024 8:18 AM CDT) Free T4 1.26 0.90 - 1.70 ng/dL Comment:Testing performed by : [address] [address] Blood 07/17/2024 8:18 AM CDT 07/17/2024 8:34 AM CDT Azalea Nance MD LAB BLOOD ORDERABLES Final Re sult Performing Organization Address [facility]/ZIP Co de Phone Number [address] [address] * GTT 100gm 3hr gestational diagnostic (07/01/2024 10:49 AM CDT) GTT 100g 3h gest 115 <=139 mg/dL Comment:Testing performed by : [address] [address] Blood 07/01/2024 10:4 9 AM CDT 07/01/2024 10:58 AM CDT Maria Luz Lopez MD LAB BLOOD ORDERABLES F inal Result Performing Organization Address [facility] Co de Phone Number [address] [address] * GTT 100gm 2hr gestational diagnostic (07/01/2024 9:46 AM CDT) GTT 100g 2h gest 127 <=154 mg/dL Comment:Testing performed by : [address] [address] Blood 07/01/2024 9:46 AM CDT 07/01/2024 10:39 AM CDT Maria Luz Lopez MD LAB BLOOD ORDERABLES F inal Result Performing Organization Address City/State/[facility] de Phone Number [facility] [place] [address] * GTT 100gm 1hr gestational diagnostic (07/01/2024 8:54 AM CDT) GTT 100g 1h gest 142 <=179 mg/dL Comment:Testing performed by : [address] [address] Blood 07/01/2024 8:54 AM CDT 07/01/2024 9:22 AM CDT Maria Luz Lopez MD LAB BLOOD ORDERABLES F inal Result Performing Organization Address [facility] de Phone Number [place] [id number] [place] [address] * GTT 100gm fasting gestational diagnostic (07/01/2024 [...] was last revised 2020. Testing performed by: [address] [address] Blood 07/01/2024 7:47 AM CDT 07/01/2024 8:21 AM CDT Maria Luz Lopez MD LAB BLOOD ORDERABLES F inal Result Performing Organization Address [facility]/ZIP Co de Phone Number [place] [phone] [facility] Department [place] [address] * (ABNORMAL) GTT 50gm 1hr gestational screen (06/23/2024 5:35 PM CDT) Pathologist [facility] GTT 50g gest screen 149(H) <=140 mg/dL [...] ORDERABLES F inal Result Performing Organization Address [facility]/ZIP Co de Phone Number [facility] Department [place] [place] [address] * RPR Blood (06/23/2024 5:35 PM CDT) Pathologist [facility] RPR Nonreactive Nonreactive Blood 06/23/2024 5:35 PM CDT 06/23/2024 5:49 PM CDT Maria Luz Lopez MD LAB MICROBIOLOGY - GEN ERAL ORDERABLES Final Result Performing Organization Address [facility]/ZIP Co de Phone Number [facility] Department [place] [address] * (ABNORMAL) CBC without differential (06/23/2024 5:35 PM CDT) Pathologist [facility] WBC 9.2 3.8 - 9.9 K/cumm Hgb 11.6(L) 11.9 - 15.5 g/dL [facility] Hct 33.8(L) 35.6 - 45.5 % [facility] Plt 186 150 - 400 K/cumm [facility] MPV 10.0 9.1 - 12.3 fL [facility] RBC 3.96 3.90 - 5.20 M/cumm [facility] MCV 85.4 81.3 - 96.4 fL [facility] MCH 29.3 27.1 - 33.3 pg [facility] MCHC 34.3 32.3 - 35.7 g/dL [facility] RDW CV 12.1 11.1 - 14.9 % [facility] RDW SD 37.5 35.7 - 48.1 fL [facility] NRBC abs 0.00 0.00 - 0.01 K/cumm [facility] Blood 06/23/2024 5:35 PM CDT 06/23/2024 5:49 PM CDT us Maria Luz Lopez MD LAB BLOOD ORDERABLES F inal Result [facility] [place] [address] * TSH (06/16/2024 8:04 AM CDT) [facility] Thyroid Stimulating Hormone 1.27 0.30 - 4.20 mcIUnit/mL Comment:Testing performed by : [facility], [address] [place] [address]., [address] Blood 06/16/2024 8:04 AM CDT 06/16/2024 8:19 AM CDT us Azalea Nance MD LAB BLOOD ORDERABLES Final Re sult [facility] [address] [facility] Department [place] [address] * T4, free (06/16/2024 8:04 AM CDT) Free T4 1.23 0.90 - 1.70 ng/dL Comment:Testing performed by : [facility], [address] [place] [address], [place]., [address] Blood 06/16/2024 8:04 AM CDT 06/16/2024 8:19 AM CDT us Azalea Nance MD LAB BLOOD ORDERABLES Final Re sult [facility] [address] [facility] Department [place] [address] * Hepatitis C antibody Blood (02/25/2024 9:46 AM IVORY POLISHER) Pathologist [facility] Hep C Ab Nonreactive Nonreactive Comment:Antibodies to HCV no t detected. Does NOT exclude the possibility of recent exposure to HCV. Current interpretive data was last revised on 21 Blood 02/25/2024 9:46 AM IVORY POLISHER 02/25/2024 10:47 AM IVORY POLISHER us Samantha Rush MD LAB MICROBIOLOGY - GEN ERAL ORDERABLES Final Result Performing Organization Address City/[facility] Co de Phone Number [facility] [place] [address] * Pap and High Risk HPV, reflex to Genotyping (06/07/2022 9:09 AM IVORY POLISHER) Thin prep (Pap test) 06/07/2022 9:09 AM IVORY POLISHER 06/08/2022 9:09 AM IVORY POLISHER Narrative PATHOLOGY [facility] - 06/14/2022 4:46 PM IVORY POLISHER [facility] Department of Pathology [address] [place] [address] Final Report with Addendum Note [...] the details. Patient Name: JACKELIN MARROQUIN Address: [address] [place] [address] Gender: F : 1990 (Age: 31) Service: Location: Hospital #: [id number] Patient Type: E SPECIMEN Taken: 06/07/2022 Received: 06/08/2022 Accessioned:: 06/11/2022 Reported: 06/14/2022 Physician(s): Juliet Loredo [facility] Diagnosis: Source of Specimen: SCREENING THIN [...] by the Surgical Pathology Department at [facility] as part of an ongoing air quality consultant program and in compliance with federally mandated [...] characteristics determined by the Surgical Pathology Department [facility]. It has not been cleared or approved by the [place]. [place]. Food and Drug Administration. Juliet Loredo CNM LAB CYTOLOGY ORDERABLES Final Result PATHOLOGY [facility] from Last 3 Months or Most Recently Relevant to Health Maintenance [place] Advance Directives For more information, please contact: [phone] * Full Code (Latest Code Status on File) Date Activated Date Inactivated Comments 02/05/2022 2:34 PM 02/06/2022 4:12 PM Care Teams Electrician Chief Relationship Specialty Start Date End Date Roula Rodriguez MD PCP - General Internal Medicine 08/27/18 Azalea Nance MD Consulting Physician Endocrinology Diabetes & Metabolism 09/12/21
--- OUTSIDE RECORDS SUMMARY | 2024-09-03 22:02 | XMS_ITS | Clinical Summary ---
Author Organization [address] Address [address] [place] [address]. [place] [address] Care Team Providers Care Drupal Web Developer Name Role Phone Unavailable Primary Care Provider [...] Comments Blood Pressure 115/68 05/12/2015 6:59 AM BODY PIERCER Pulse - - Temperature - - Respiratory Rate - - Oxygen Saturation - - Inhaled Oxygen Concentration - - Weight 61.7 kg (136 lb) 05/12/2015 6:59 AM BODY PIERCER Height 162.6 cm (5' 4) 05/12/2015 6:59 AM BODY PIERCER Body Mass Index 23.34 05/12/2015 6:59 AM BODY PIERCER Plan of Treatment Health Maintenance Due Date [...] has been evaluated with computer assisted technology. CUSTOM HOME INSTALLER: SEE COMMENT 01/21/2015 9:50 AM CDT [facility] Comment: MAF, CT(ASCP) CT screening location: [facility] [address] [address] [address] Endocervical Collection / Unknown 01/17/2015 12:00 PM CDT 01/17/2015 5:00 PM CDT Narrative [facility] - 01/21/2015 9:50 AM CDT Performing Organization Information: Site ID: SL Name: [facility] Address: [address] [place] [address] Director: Desiree Phillips MD us Shaun Freeman MD PATHOLOGY/CYTOLOGY ORDERABLES F inal Result [facility] [address] [place] [address], from Last 3 Months or Most Recently Relevant to Health Maintenance Insurance [employer] CHOICE
--- OUTSIDE RECORDS SUMMARY | 2024-09-03 22:02 | XMS_ITS | Encounter Summary ---
Author Organization [facility] Address [address] [place] [address] Phone Care Team Providers Care Licensed Occupational Therapy Assistant Name Role Phone Roula Rodriguez MD Primary Care Provider Azalea Nance MD Unavailable [phone] Encounter Details Date Type Department Care Team (Late st Contact Info) Description 09/03/2024 Orders Only [facility] Obstetrics and Gynecology [address] [facility] [address] [place] [address] [place] [address] [place] [address] [address] [place] [address] Supervision of other normal , [...] staff should administer the PHQ-9) 0 02/19/2024 [facility] [place] [facility] - Occupational Stress Questionnaire Answer Date Recorded [...] things needed for daily living? No 08/23/2024 [place] Depression Scale Answer Date Recorded [place] Depression Scale Total 17 02/25/2024 The thought [...] on file Legal Sex Female 8:41 AM WIRE MILL ROVER Gender Identity Female 04/27/2020 2:10 PM WIRE MILL ROVER Sexual Orientation Straight 04/27/2020 2: 10 PM WIRE MILL ROVER documented as of this encounter Miscellaneous Notes * Addendum Note - Ramakrishna Espinal - 09/03/2024 9:52 AM CDTAddended by: RAMAKRISHNA ESPINAL on: 09/03/2024 01:56 PM Modules accepted: Orders documented in this encounter Plan of Treatment Upcoming Encounters Date Type Department Care Team (Late st Contact Info) Description 10/11/2024 Hospital Encounter [address] [address] Roula Kitchen MD [address] [id number] documented as of this encounter Results * Ferritin (09/03/2024 2:02 PM CDT) Ferritin 16 15 - 150 ng/mL Comment:Testing performed by : [address] [address] Blood 09/03/2024 2:02 PM CDT 09/03/2024 2:23 PM CDT Samantha Rush MD LAB BLOOD ORDERABLES F inal Result Performing Organization Address [facility] de Phone Number [facility] [place] [address] [facility] [place] [address] * (ABNORMAL) Iron profile w/ IBC (09/03/2024 2:02 PM CDT) Iron 53 35 - 145 mcg/dL Comment:Testing performed by : [address] [address] TIBC 477(H) 250 - 400 mcg/dL [place] Comment:Testing performed by : [address] [address] Transferrin saturation 11(L) 20 - 50 % [place] Comment:Testing performed by : [address] [address] Blood 09/03/2024 2:02 PM CDT 09/03/2024 2:23 PM CDT Samantha Rush MD LAB BLOOD ORDERABLES F inal Result Performing Organization Address [facility] Co de Phone Number [facility] [address] [facility] [place] [address] documented in this encounter Visit Diagnoses Diagnosis Supervision of other normal , antepartum- Primary documented in this encounter Care Teams Licensed Occupational Therapy Assistant Relationship Specialty Start Date End Date Roula Rodriguez MD PCP - General Internal Medicine 08/27/18 Azalea Nance MD Consulting Physician Endocrinology Diabetes & Metabolism 09/12/21 documented as of this encounter
--- OUTSIDE RECORDS SUMMARY | 2024-09-03 22:02 | XMS_ITS | Encounter Summary ---
Author Organization [facility] Address [address] [place] [address] Care Team Providers Care Athlete Manager Name Role Phone Unavailable Primary Care Provider Unavailabl e Encounter Details Date Type Department Care Team (Late st Contact Info) Description 06/20/2022 Abstract [facility] [address] [address] [place] [address] Fertility, Care Services, [facility] [id number] [place] [address] Social History Tobacco Use Types Packs/Day Years [...]
--- OUTSIDE RECORDS SUMMARY | 2024-09-03 22:02 | XMS_ITS | Encounter Summary ---
Author Organization [facility] Address [address] [place] [address] Care Team Providers Care Electrician Apprentice Powerhouse Name Role Phone Roula Rodriguez MD Primary Care Provider Azalea Nance MD Unavailable [phone] Encounter Details Date Type Department Care Team (Late st Contact Info) Description 09/03/2024 1:50 PM CDT Lab [facility] [address] [place] [id number] Supervision of other normal , antepartum Social [...] staff should administer the PHQ-9) 0 02/19/2024 [facility] [place] of Occupat ional Health - Occupational Stress [...] things needed for daily living? 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 Gender Identity Female 04/27/2020 2:10 PM FINANCIAL SERVICES AUDITOR Sexual Orientation Straight 04/27/2020 2: 10 PM FINANCIAL SERVICES AUDITOR documented as of this encounter Plan of Treatment Upcoming Encounters Date Type Department Care Team (Late st Contact Info) Description 10/11/2024 Hospital Encounter [address] [address] Roula Kitchen MD [address] [address] documented as of this encounter Procedures Procedure [...] - 145 mcg/dL Comment:Testing performed by : [facility], [address] [place] [address]., [address] TIBC 477(H) 250 - 400 mcg/dL [place] ROSENBERG Comment:Testing performed by : [address] [address] Transferrin saturation 11(L) 20 - 50 % [place] ROSENBERG Comment:Testing performed by : [address] [address] Blood 09/03/2024 2:02 PM CDT 09/03/2024 2:23 PM CDT Samantha Rush MD LAB BLOOD ORDERABLES F inal Result Performing Organization Address [facility]/ZIP Co de Phone Number [address] [place] [address] * Ferritin (09/03/2024 2:02 PM CDT) Ferritin 16 15 - 150 ng/mL Comment:Testing performed by : [address] [address] Blood 09/03/2024 2:02 PM CDT 09/03/2024 2:23 PM CDT Samantha Rush MD LAB BLOOD ORDERABLES F inal Result Performing Organization Address [facility]/ZIP Co de Phone Number [address] [place] [address] documented in this encounter Visit Diagnoses Diagnosis Supervision of other normal , antepartum documented in this encounter Care Teams Electrician Apprentice Powerhouse Relationship Specialty Start Date End Date Roula Rodriguez MD PCP - General Internal Medicine 08/27/18 Azalea Nance MD Consulting Physician Endocrinology Diabetes & Metabolism 09/12/21 documented as of this encounter
--- OUTSIDE RECORDS SUMMARY | 2024-09-03 22:02 | XMS_ITS | Encounter Summary ---
Author Organization [facility] Healthcare Address [address] [place] [address] Care Team Providers Care Sponge Packer Name Role Phone Roula Rodriguez MD Primary Care Provider Azalea Nance MD Unavailable [phone] Encounter Details Date Type Department Care Team (Late st Contact Info) Description 09/03/2024 2:05 PM CDT Lab [facility] [address] [place] [address] Post-surgical hypothyroidism Social History Tobacco Use [...] staff should administer the PHQ-9) 0 02/19/2024 [facility] of Occupat ional Health - Occupational Stress [...] things needed for daily living? 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 Gender Identity Female 04/27/2020 2:10 PM STUDENT SUCCESS COACH Sexual Orientation Straight 04/27/2020 2: 10 PM STUDENT SUCCESS COACH documented as of this encounter Plan of Treatment Upcoming Encounters Date Type Department Care Team (Late st Contact Info) Description 10/11/2024 Hospital Encounter [address] [address] Roula Kitchen MD [address] [address] documented as of this encounter Procedures Procedure Name Priority Date/Time Associated Diagnosis Comments TSH Routine 09/03/2024 2:02 PM CDT Post-surgical hypothyroidism T4, FREE Routine 09/03/2024 2:02 PM CDT Post-surgical hypothyroidism documented in this encounter Results * (ABNORMAL) TSH (09/03/2024 2:02 PM CDT) Thyroid Stimulating Hormone 9.47(H) 0.30 - 4.20 mcIUnit/mL Comment:Testing performed by : [facility], [address] [place] [address], [place]., [address] Blood 09/03/2024 2:02 PM CDT 09/03/2024 2:23 PM CDT Azalea Nance MD LAB BLOOD ORDERABLES Final Re sult Performing Organization Address [facility] Co de Phone Number [address] [address] * T4, free (09/03/2024 2:02 PM CDT) Free T4 1.10 0.90 - 1.70 ng/dL Comment:Testing performed by : [facility], [address] [place] [address], [address] Blood 09/03/2024 2:02 PM CDT 09/03/2024 2:23 PM CDT Azalea Nance MD LAB BLOOD ORDERABLES Final Re sult Performing Organization Address [facility] de Phone Number [address] [address] documented in this encounter Visit Diagnoses Diagnosis Post-surgical hypothyroidism Postsurgical hypothyroidism documented in this encounter Care Teams Sponge Packer Relationship Specialty Start Date End Date Roula Rodriguez MD PCP - General Internal Medicine 08/27/18 Azalea Nance MD Consulting Physician Endocrinology Diabetes & Metabolism 09/12/21 documented as of this encounter
--- OUTSIDE RECORDS SUMMARY | 2024-09-03 22:02 | XMS_ITS | Clinical Summary ---
Author Organization [facility] [place] [place] 8 [facility] Address [address] [place] [address] Care Team Providers Care Beer Coil Cleaner Name Role Phone Roula Rodriguez MD Primary Care Provider Azalea Nance MD Unavailable [phone] Allergies Active Allergy Reactions Criticality Noted [...] 1 capsule (137 mcg total) by mouth husker operator before breakfast 90 capsule 3 5 026 [...] ABORH O Positive 02/25/2024 IDCOOMB Negative 02/25/2024 [id number] Nonreactive 02/25/2024 LABRPR Nonreactive 02/25/2024 RUBELIGG Reactive [...] applicable Assessment & Plan (02/25/2024 9:01 AM BIAS MACHINE OPERATOR): - TVUS for dating and viability completed today - labs ordered - Pap NILM, HPV neg 06/2022, hx ASCIS HPV neg in 2020 - GC/CT/trichomonas offered collected - [place] Depression Scale Total: 17 - Reviewed criteria [...] (01/25/2022): Added automatically from request for surgery [id number] Thyroid eye disease 10/24/2021 Assessment & Plan [...] 11/13/2018 Assessment & Plan (02/25/2024 8:59 AM BIAS MACHINE OPERATOR): Hx significant for panic attacks since teenager Manages anx, dep with psychiatrist since childhood in [place], saw there provider last week and has been in touch since that appt Had a therapist she sees regularly No thoughts of self harm, hx of SI in the past Recently increased dose of sertraline from 37.5 to 50 mg every day [facility] Reviewed risks and benefits of SSRIs in , counseling towards importance of stable mood in , will continue to monitor Depression: High Risk (02/25/2024) [place] Depression Scale Last EPDS Total Score: 17 Last EPDS Self Harm Result: Never Hyperthyroidism 04/17/2018 Assessment & Plan (02/25/2024 8:56 AM BIAS MACHINE OPERATOR): Due to Graves disease, was resistant to antithyroid medications, so s/p thyroidectomy in 01/2022 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 Assessment & Plan (07/22/2018 3:45 PM CDT): Continue Tapazole 10 mg daily Recheck levels in 4 wks F/u in 4 m Assessment & Plan (04/17/2018 4:51 PM BIAS MACHINE OPERATOR): It was explained to the patient [...] PM CDT Lab [facility] [address] [place] [address] Post-surgical hypothyroidism 09/03/2024 1:50 PM CDT Lab [facility] [address] [place] [address] Supervision of other normal , antepartum 09/03/2024 Orders Only [facility] Obstetrics and Gynecology [address] [place] [address] Floor [address] [place] [address] Samantha Rush MD Supervision of other normal , antepartum (Primary Dx) 08/24/2024 Orders Only [facility] Obstetrics and Gynecology [address] [place] [address] Floor [address] [place] [address] Erickson Bah MD 08/23/2024 8:21 AM CDT - 08/23/2024 10:09 AM CDT Hospital Encounter [address] [address] Roula Kitchen MD Whelan, Victoria Conway, MD Discharge Disposition: Discharge to home or self care 08/20/2024 4:15 PM CDT Clinical Support [facility] Obstetrics and Gynecology [address] [place] [address] 08/20/2024 4:00 PM CDT Office Visit [facility] Ob[facility]etrics and Gynecology [address] [place] [address] Floor [address] [place] [phone] Supervision of other normal , antepartum (Primary Dx) 07/30/2024 1:00 PM CDT Clinical Support [facility] Obstetrics and Gynecology [address] [phone] Supervision of other normal , antepartum (Primary Dx); Decreased movements in third trimester, single or unspecified fetus 07/30/2024 1:00 PM CDT Office Visit [facility] Obstetrics and Gynecology [address] [place] [address] Floor [address] [place] [address] Decreased movements in third trimester, single or unspecified fetus (Primary Dx) 07/22/2024 4:00 PM CDT Office Visit [facility] Obstetrics and Gynecology [address] [place] [address] [address] [place] [phone] Supervision of normal first , antepartum (Primary Dx) 07/22/2024 Results Follow-Up [address] Medical Office Building [address], [address] [place] [phone] Azalea Nance MD T4, free, TSH 07/17/2024 8:15 AM CDT Lab [facility] [address] [place] [address] Post-surgical hypothyroidism 07/01/2024 6:25 AM CDT Lab [facility] [address] [place] [address] Elevated glucose tolerance test 06/24/2024 Orders Only [facility] Obstetrics and Gynecology [address] [place] [address] [address] [place] [phone] Maria Luz Lopez MD Elevated glucose tolerance test (Primary Dx) 06/23/2024 6:10 PM CDT Lab [facility] ([facility]) [address] [place] [phone] Supervision of other normal , antepartum 06/23/2024 3:30 PM CDT Office Visit [facility] Obstetrics and Gynecology [address] [facility] 7th Floor [address] [place] [address] Supervision of other normal , antepartum (Primary Dx) 06/18/2024 Results Follow-Up [facility] Endocrinology Metabolism and Lipid [address] [facility] Medical Office Building 4, [address] [place] [address] Azalea Nance MD T4, free, TSH 06/16/2024 8:00 AM CDT Lab [facility] [address] [place] [address] Post-surgical hypothyroidism from Last 3 Months Immunizations [...] staff should administer the PHQ-9) 0 02/19/2024 [facility] - Occupational Stress [...] things needed for daily living? No 08/23/2024 [place] Depression Scale Answer Date Recorded [place] Depression Scale Total 17 02/25/2024 The thought [...] on file Legal Sex Female 8:41 AM BIAS MACHINE OPERATOR Gender Identity Female 04/27/2020 2:10 PM BIAS MACHINE OPERATOR Sexual Orientation Straight 04/27/2020 2: 10 PM BIAS MACHINE OPERATOR Obstetrics History Para Term AB IAB [...] palms Estimated Date of Delivery: 10/11/24 Provider: [facility] OBGYN HPI: Jackelin Marroquin is a 33 [...] Sex Type Anes PTL Lv 1 Current SLOT SERVICE SPECIALIST History: Patient's last menstrual period was 01/05/2024. [...] ABORH O Positive 02/25/2024 IDCOOMB Negative 02/25/2024 [id number] Nonreactive 02/25/2024 LABRPR Nonreactive 06/23/2024 RUBELIGG Reactive [...] with Dr. Rush. OK to discharge home. Pooja Childs NP 08/23/24 Cosigned by Samantha Rush MD at 08/24/2024 7:08 AM CDT Associated attestation - Samantha Rush MD - 08/24/2024 7:08 AM CDT GRANULATING MACHINE OPERATOR Christin Childs saw and examined the patient, [...] 07/30/2024 - 29w4d - Tasha Rodriguez NP SLOT SERVICE SPECIALIST visit note Chief Complaint: Chief Complaint Routine [...] 1 capsule (137 mcg total) by mouth husker operator before breakfast, Disp: 90 capsule, Rfl: 3 [...] the AAP recommends introducing solids. Aware that ruby on rails consultant will meet with patient in the hospital. Discussed colostrum, how to order a breast pump, referred to the breast feeding guide and booklet provided. Discussed the baby friendly initiatives i.e. skin to skin, rooming in and delayed bath. Also discussed birthing classes and how to enroll, reviewed online resources and virtual tour currently being offered by [facility]. A bowling alley refinisher list was offered and accepted by the [...] labs to be ordered/recommended with 24 wks MACHINE OPERATOR Progress Notes - Office Visi t - 04/20/2024 - GA:15w1d 04/20/2024 - 15w1d - Maria Luz Lopez MD Doing well Having headaches Mood stable on Zoloft & Buspar - following with psych Resolved nausea Anatomy US in 05/28 MACHINE OPERATOR Progress Notes - Procedure v isit - 03/27/2024 - GA:11w5d 03/27/2024 - 11w5d - Zarina House, RN Cell free DNA obtained x2 sticks with no complications. Pt DOES desire to know sex, informed pt it would be on [employer] results when released, pt verbalized understanding. Kit# [id number] MACHINE OPERATOR Progress Notes - Office Visi t - 03/27/2024 - GA:11w5d 03/27/2024 - wd - Erickson Bah MD EOB--11w5d - Doing well today. Presents with , Yao - AMA: Panorama today. Reminded to start ASA 81mg daily at 12 weeks. - Anxiety/Depression: Mood improved without SI/HI, continue sertraline and buspirone - Hyperparathyroidism/Graves: Managed by endocrinology MACHINE OPERATOR Progress Notes - Office Visi t [...] for pre-e. Desires cfdna. Pt verbalizes understanding. MACHINE OPERATOR 02/25/2024 - 7w2d - Samantha Rush MD [facility] Initial Visit Jackelin Marroquin is a 33 [...] I have reviewed and updated: OB history, SLOT SERVICE SPECIALIST history, problem list, past medical history, past [...] in 2020 - GC/CT/trichomonas offered collected - [place] Depression Scale Total: 17 - Reviewed criteria [...] anx, dep with psychiatrist since childhood in [place], saw there provider last week and has been in touch since that appt Had a therapist she sees regularly No thoughts of self harm, hx of SI in the past Recently increased dose of sertraline from 37.5 to 50 mg every day and [facility] doses Reviewed risks and benefits of SSRIs in , counseling towards importance of stable mood in , will continue to monitor Depression: High Risk (02/25/2024) [place] Depression Scale Last EPDS Total Score: 17 [...] plan for monitoring of TSH during with garde manger Thyroid eye disease, stable Return to clinic in 4 weeks. Advised to contact office with any questions or concerns or present to [facility] with any emergent issues. Samantha Rush MD MACHINE OPERATOR Last Filed Vital Signs Vital Sign [...] st Contact Info) Description 10/11/2024 Hospital Encounter [facility] [address] [place] [address] Roula Kitchen MD [address] [facility] [address] [place] [address] Health Maintenance Due Date Last Done Comments [...] HEPATITIS C ANTIBODY Routine 02/25/2024 9:46 AM BIAS MACHINE OPERATOR Supervision of other normal , antepartum PAP AND HIGH RISK HPV, REFLEX TO GENOTYPING Routine 06/07/2022 9:09 AM BIAS MACHINE OPERATOR Well woman exam from Last 3 Months or Most Recently Relevant to Health Maintenance Results * (ABNORMAL) Iron profile w/ IBC (09/03/2024 2:02 PM CDT) Iron 53 35 - 145 mcg/dL Comment:Testing performed by : [address] [address] TIBC 477(H) 250 - 400 mcg/dL [facility] Comment:Testing performed by : [address] [id number] Transferrin saturation 11(L) 20 - 50 % [facility] Comment:Testing performed by : [address] [id number] Blood 09/03/2024 2:02 PM CDT 09/03/2024 2:23 PM CDT us Samantha Rush MD LAB BLOOD ORDERABLES F inal Result [facility] [address] [facility] Department [place] [address] * (ABNORMAL) TSH (09/03/2024 2:02 PM CDT) Thyroid Stimulating Hormone 9.47(H) 0.30 - 4.20 mcIUnit/mL Comment:Testing performed by : [address] [address] Blood 09/03/2024 2:02 PM CDT 09/03/2024 2:23 PM CDT Azalea Nance MD LAB BLOOD ORDERABLES Final Re sult Performing Organization Address City/[facility]/ZIP Co de Phone Number [address] [address] * T4, free (09/03/2024 2:02 PM CDT) Pathologist [facility] Free T4 1.10 0.90 - 1.70 ng/dL Comment:Testing performed by : [address] [address] Blood 09/03/2024 2:02 PM CDT 09/03/2024 2:23 PM CDT Azalea Nance MD LAB BLOOD ORDERABLES Final Re sult Performing Organization Address [facility] Co de Phone Number [address] [address] * Ferritin (09/03/2024 2:02 PM CDT) Pathologist [facility] Ferritin 16 15 - 150 ng/mL Comment:Testing performed by : [address] [address] Blood 09/03/2024 2:02 PM CDT 09/03/2024 2:23 PM CDT Samantha Rush MD LAB BLOOD ORDERABLES F inal Result Performing Organization Address [facility] Co de Phone Number [address] [address] * eGFR (08/23/2024 8:45 AM CDT) Pathologist [facility] eGFR >90 >=60 mL/min/1. 73 m2 [...] 08/23/2024 8:57 AM CDT us Pooja Childs GRANULATING MACHINE OPERATOR LAB BLOOD ORD ERABLES Final Result [facility] [place] [address] * Differential, auto (08/23/2024 8:45 AM CDT) [facility] Neutrophil abs 5.53 1.50 - 6.50 K/cumm Imm gran abs 0.06 0.00 - 0.10 K/cumm [facility] Lymphocyte abs 1.64 0.80 - 3.30 K/cumm [facility] Monocyte abs 0.56 0.20 - 0.80 K/cumm [facility] Eosinophil abs 0.11 0.00 - 0.50 K/cumm [facility] Basophil abs 0.04 0.00 - 0.10 K/cumm [facility] Neutrophil pct 69.5 % [facility] Comment: Interpretive Data Percent cell count reference ranges are not reported, since discordance with absolute values may lead to misinterpretation of CBC data. Current Interpretive Data was last revised on 2017. Imm gran pct 0.8 % [facility] Comment: Interpretive Data Percent cell count reference ranges are not reported, since discordance with absolute values may lead to misinterpretation of CBC data. Current Interpretive Data was last revised on 2017. Lymphocyte pct 20.7 % [facility] Comment: Interpretive Data Percent cell count reference ranges are not reported, since discordance with absolute values may lead to misinterpretation of CBC data. Current Interpretive Data was last revised on 2017. Monocyte pct 7.1 % [facility] Comment: Interpretive Data Percent cell count reference ranges are not reported, since discordance with absolute values may lead to misinterpretation of CBC data. Current Interpretive Data was last revised on 2017. Eosinophil pct 1.4 % [facility] Comment: Interpretive Data Percent cell count reference ranges are not reported, since discordance with absolute values may lead to misinterpretation of CBC data. Current Interpretive Data was last revised on 2017. Basophil pct 0.5 % [facility] Comment: Interpretive Data Percent cell count reference ranges are not reported, since discordance with absolute values may lead to misinterpretation of CBC data. Current Interpretive Data was last revised on 2017. Blood 08/23/2024 8:45 AM CDT 08/23/2024 8:57 AM CDT Pooja Childs GRANULATING MACHINE OPERATOR LAB BLOOD ORD ERABLES Final Result [facility] [address] [facility] Department [place] [address] * (ABNORMAL) CBC with auto differential (08/23/2024 8:45 AM CDT) WBC 7.94 3.80 - 9.90 K/cumm Hgb 10.4(L) 11.9 - 15.5 g/dL [facility] Hct 30.9(L) 35.6 - 45.5 % [facility] Plt 201 150 - 400 K/cumm [facility] MPV 10.6 9.1 - 12.3 fL [facility] RBC 3.99 3.90 - 5.20 M/cumm [facility] MCV 77.4(L) 81.3 - 96.4 fL [facility] MCH 26.1(L) 27.1 - 33.3 pg [facility] MCHC 33.7 32.3 - 35.7 g/dL [facility] RDW CV 13.2 11.1 - 14.9 % [facility] RDW SD 36.8 35.7 - 48.1 fL [facility] NRBC abs 0.00 0.00 - 0.01 K/cumm [facility] Blood 08/23/2024 8:45 AM CDT 08/23/2024 8:57 AM CDT [facility] LAB BLOOD ORD ERABLES Final Result Performing Organization Address [facility] Co de Phone Number [facility] [place] [address] * Bile acids (08/23/2024 8:45 AM CDT) Pathologist [facility] Bile acids 2 <=10 mcmol/L [facility] ref Lab Comment: Test Performed by: [place] [address] [employer] Jointer: Cecilio Yao Ph.D.; CLIA# [id number] Blood 08/23/2024 8:45 AM CDT 08/23/2024 10:09 AM CDT [facility] LAB BLOOD ORD ERABLES Final Result Performing Organization Address City/[facility]/ZIP Co de Phone Number [facility] [place] [employer] [place] [address] Gilliam ref Lab * (ABNORMAL) Comprehensive metabolic panel (08/23/2024 8:45 AM CDT) Pathologist [facility] Sodium 138 135 - 145 mmol/L Potassium, pl 3.9 3.3 - 4.9 mmol/L [facility] Chloride 104 97 - 110 mmol/L [facility] CO2 24 22 - 32 mmol/L [facility] Anion gap 10 2 - 15 mmol/L [facility] BUN 5(L) 6 - 25 mg/dL [facility] Creatinine 0.68 0.60 - 1.10 mg/dL [facility] Glucose 98 70 - 199 mg/dL [facility] Comment: Interpretive Data Fasting glucose [...] 2022. Calcium 8.5 8.5 - 10.3 mg/dL [facility] Bilirubin, total 0.3 0.1 - 1.2 mg/dL [facility] Protein, pl 6.4(L) 6.5 - 8.5 g/dL [facility] Albumin 3.3(L) 3.5 - 5.0 g/dL [facility] Alk phos 108 40 - 130 Units/L [facility] ALT 11 7 - 45 Units/L [facility] AST 18 10 - 45 Units/L [facility] Blood 08/23/2024 8:45 AM CDT 08/23/2024 8:57 AM CDT us Pooja Childs NP LAB BLOOD ORD ERABLES Final Result [facility] Department [place] [address] * nonstress test - (07/30/2024 1:48 PM CDT) us Tasha Rodriguez GRANULATING MACHINE OPERATOR OB GYNE ORDERABLES F inal Result * TSH (07/17/2024 8:18 AM CDT) Thyroid Stimulating Hormone 1.84 0.30 - 4.20 mcIUnit/mL Comment:Testing performed by : [address] [address] Blood 07/17/2024 8:18 AM CDT 07/17/2024 8:34 AM CDT Azalea Nance MD LAB BLOOD ORDERABLES Final Re sult Performing Organization Address City/[facility]/ZIP Co de Phone Number [address] [place] [place] [address] * T4, free (07/17/2024 8:18 AM CDT) Free T4 1.26 0.90 - 1.70 ng/dL Comment:Testing performed by : [address] [address] Blood 07/17/2024 8:18 AM CDT 07/17/2024 8:34 AM CDT Aazlea Nance MD LAB BLOOD ORDERABLES Final Re sult Performing Organization Address [facility] Co de Phone Number [address] [place] [place] [address] * GTT 100gm 3hr gestational diagnostic (07/01/2024 10:49 AM CDT) GTT 100g 3h gest 115 <=139 mg/dL Comment:Testing performed by : [address] [address] Blood 07/01/2024 10:4 9 AM CDT 07/01/2024 10:58 AM CDT Maria Luz Lopez MD LAB BLOOD ORDERABLES F inal Result Performing Organization Address City/[facility]/ZIP Co de Phone Number CERNER [address] [address] * GTT 100gm 2hr gestational diagnostic (07/01/2024 9:46 AM CDT) GTT 100g 2h gest 127 <=154 mg/dL Comment:Testing performed by : [address] [id number] Blood 07/01/2024 9:46 AM CDT 07/01/2024 10:39 AM CDT Maria Luz Lopez MD LAB BLOOD ORDERABLES F inal Result Performing Organization Address City/[facility] Co de Phone Number [facility] [address] [address] * GTT 100gm 1hr gestational diagnostic (07/01/2024 8:54 AM CDT) GTT 100g 1h gest 142 <=179 mg/dL Comment:Testing performed by : [facility], [address] [place] [address]., [id number] Blood 07/01/2024 8:54 AM CDT 07/01/2024 9:22 AM CDT Maria Luz Lopez MD LAB BLOOD ORDERABLES F inal Result Performing Organization Address City/[facility]/ZIP Co de Phone Number ALLYSON [address] [address] * GTT 100gm fasting gestational diagnostic (07/01/2024 [...] was last revised 2020. Testing performed by: [facility], [address] [place] [address]., [id number] Blood 07/01/2024 7:47 AM CDT 07/01/2024 8:21 AM CDT Maria Luz Lopez MD LAB BLOOD ORDERABLES F inal Result [facility] [address] Department [place] [address] * (ABNORMAL) GTT 50gm 1hr [...] LAB BLOOD ORDERABLES F inal Result [facility] Department [place] [address] * RPR Blood (06/23/2024 5:35 PM CDT) RPR Nonreactive Nonreactive Blood 06/23/2024 5:35 PM CDT 06/23/2024 5:49 PM CDT Maria Luz Lopez MD LAB MICROBIOLOGY - GEN ERAL ORDERABLES Final Result Performing Organization Address [facility] Co de Phone Number [facility] Department [place] [address] * (ABNORMAL) CBC without differential (06/23/2024 5:35 PM CDT) Pathologist [facility] WBC 9.2 3.8 - 9.9 K/cumm Hgb 11.6(L) 11.9 - 15.5 g/dL [facility] Hct 33.8(L) 35.6 - 45.5 % [facility] Plt 186 150 - 400 K/cumm [facility] MPV 10.0 9.1 - 12.3 fL [facility] RBC 3.96 3.90 - 5.20 M/cumm [facility] MCV 85.4 81.3 - 96.4 fL [facility] MCH 29.3 27.1 - 33.3 pg [facility] MCHC 34.3 32.3 - 35.7 g/dL [facility] RDW CV 12.1 11.1 - 14.9 % [facility] RDW SD 37.5 35.7 - 48.1 fL [facility] NRBC abs 0.00 0.00 - 0.01 K/cumm [facility] Blood 06/23/2024 5:35 PM CDT 06/23/2024 5:49 PM CDT Maria Luz Lopez MD LAB BLOOD ORDERABLES F inal Result Performing Organization Address [facility]/ZIP Co de Phone Number [facility] Department [place] [address] * TSH (06/16/2024 8:04 AM CDT) Pathologist [facility] Thyroid Stimulating Hormone 1.27 0.30 - 4.20 mcIUnit/mL Comment:Testing performed by : [facility], [address] [place] [address]., [id number] Blood 06/16/2024 8:04 AM CDT 06/16/2024 8:19 AM CDT Azalea Nance MD LAB BLOOD ORDERABLES Final Re sult [address] [place] [address] * T4, free (06/16/2024 8:04 AM CDT) Free T4 1.23 0.90 - 1.70 ng/dL Comment:Testing performed by : [facility], [address] [place] [address]., [address] Blood 06/16/2024 8:04 AM CDT 06/16/2024 8:19 AM CDT Azalea Nance MD LAB BLOOD ORDERABLES Final Re sult Performing Organization Address [facility] Co de Phone Number [address] [address] * Hepatitis C antibody Blood (02/25/2024 9:46 AM BIAS MACHINE OPERATOR) Hep C Ab Nonreactive Nonreactive Comment:Antibodies to HCV no t detected. Does NOT exclude the possibility of recent exposure to HCV. Current interpretive data was last revised on 21 Blood 02/25/2024 9:46 AM BIAS MACHINE OPERATOR 02/25/2024 10:47 AM BIAS MACHINE OPERATOR Samantha Rush MD LAB MICROBIOLOGY - GEN ERAL ORDERABLES Final Result [facility] [place] [address] * Pap and High Risk HPV, reflex to Genotyping (06/07/2022 9:09 AM BIAS MACHINE OPERATOR) Thin prep (Pap test) 06/07/2022 9:09 AM BIAS MACHINE OPERATOR 06/08/2022 9:09 AM BIAS MACHINE OPERATOR Narrative PATHOLOGY [facility] - 06/14/2022 4:46 PM BIAS MACHINE OPERATOR [facility] Department of Pathology [address] [place] [address] Final Report with Addendum Note to Patients: [...] the details. Patient Name: JACKELIN MARROQUIN Address: [address] [place] [address] Gender: F : 1990 (Age: 31) Service: Location: N : [id number] [facility] #: [id number] Patient Type: [facility] SPECIMEN Taken: 06/07/2022 Received: 06/08/2022 Accessioned:: 06/11/2022 Reported: 06/14/2022 Physician(s): Juliet Loredo, [facility] Diagnosis: Source of Specimen: SCREENING THIN PREP [...] determined by the Surgical Pathology Department at [facility] as part of an ongoing director of quality control program and in compliance with federally mandated [...] characteristics determined by the Surgical Pathology Department [facility]. It has not been cleared or approved by the [place]. [place]. Food and Drug Administration. Juliet [facility] CYTOLOGY ORDERABLES Final Result [facility] from Last 3 Months or Most Recently Relevant to Health Maintenance Insurance [employer] [facility] [employer] [place] Advance Directives For more information, please contact: [phone] * Full Code (Latest Code Status on File) Date Activated Date Inactivated Comments 02/05/2022 2:34 PM 02/06/2022 4:12 PM Care Teams Beer Coil Cleaner Relationship Specialty Start Date End Date Roula Rodriguez MD PCP - General Internal Medicine 08/27/18 Azalea Nance MD Consulting Physician Endocrinology Diabetes & Metabolism 09/12/21
--- OUTSIDE RECORDS SUMMARY | 2024-09-03 22:02 | XMS_ITS | Encounter Summary ---
Author Organization [facility] Address [address] [place] [address] Phone Care Team Providers Care Installer Soft Top Name Role Phone Roula Rodriguez MD Primary Care Provider Azalea Nance MD Unavailable [phone] Encounter Details Date Type Department Care Team (Late st Contact Info) Description 07/22/2024 Results Follow-Up [facility] Complete Care [address] [facility] [address], [address] [place] [address] Azalea Nance MD [address] [place] [address] T4, free, TSH Social History [...] staff should administer the PHQ-9) 0 02/19/2024 Kincaid Depression Scale Answer Date Recorded Kincaid Depression Scale Total 17 02/25/2024 The thought [...] on file Legal Sex Female 8:41 AM [employer] Gender Identity Female 04/27/2020 2:10 PM [employer] Sexual Orientation Straight 04/27/2020 2: 10 PM [employer] documented as of this encounter Miscellaneous Notes * Result Encounter Note - Azalea Nance MD - 07/22/2024 6:32 PM CDT Labs are looking good, hope you are feeling good. Aazlea Nance documented in this encounter Plan of Treatment Upcoming Encounters Date Type Department Care Team (Late st Contact Info) Description 10/11/2024 Hospital Encounter [address] [address] Roula Kitchen MD [address] [address] documented as of this encounter Visit Diagnoses Not on filedocumented in this encounter Care Teams Installer Soft Top Relationship Specialty Start Date End Date Roula Rodriguez MD PCP - General Internal Medicine 08/27/18 Azalea Nance MD Consulting Physician Endocrinology Diabetes & Metabolism 09/12/21 documented as of this encounter
--- NOTE | 2024-09-03 22:43 | ED.WOUNDLAC ---
HPI - Wound/Laceration General Chief Complaint: Wound/Laceration Stated Complaint: finger lac Time Seen by Provider: 09/03/24 21:36 Source: patient Mode of arrival: ambulatory Limitations: no limitations History of Present Illness HPI narrative: Patient is a 33-year-old female who presents the ED with report of a laceration to right thumb. Patient reports she was cutting bread with a bread knife when she sustained a laceration to her right thumb finger pad. No other injuries. No numbness. Tetanus up-to-date. Patient is currently 35 weeks gestation. No issues regarding Related Data Allergies Allergy/AdvReac Type Severity Reaction Status Date / Time No Known Allergies Allergy Verified 09/03/24 21:14 Review of Systems Review of Systems: All systems reviewed & are unremarkable except as noted in HPI. All systems reviewed & are unremarkable except as noted in HPI and below PMFSH Past Medical History Medical History Hyperthyroidism Surgical History Surgical History No history of previous surgery Social History Social History Smoking status: Never smoker Exam Narrative: GENERAL: Well appearing, well-nourished, non-toxic, in no acute distress. HEAD: Normocephalic, atraumatic. RESPIRATORY: Airway patent, respirations nonlabored CARDIOVASCULAR: Regular rate and rhythm ABDOMINAL: Uterus gravid. MUSCULOSKELETAL: Moves all extremities. No gross deformities. ROM intact of R thumb. SKIN: Warm, dry, normal color. 1.5cm linear laceration of R thumb finger pad near IP joint. No active bleeding. Sensation intact. Capillary refill intact. NEURO: A&O X3. Speech clear. PSYCHIATRIC: Appropriate mood and affect. Normal interaction. Course Vital Signs Vital signs: Vital Signs Temperature 97.1 F L 09/03/24 21:04 Pulse Rate 86 09/03/24 21:04 Respiratory Rate 20 09/03/24 21:04 Blood Pressure 127/78 09/03/24 21:04 Pulse Oximetry 100 09/03/24 21:04 Oxygen Delivery Room Air 09/03/24 21:04 Temperature 97.1 F L 09/03/24 21:04 Pulse Rate 86 09/03/24 21:04 Respiratory Rate 20 09/03/24 21:04 Blood Pressure 127/78 09/03/24 21:04 Pulse Oximetry 100 09/03/24 21:04 Oxygen Delivery Room Air 09/03/24 21:04 Procedures Laceration Laceration 1: Date: 09/03/24 Time: 22:35 Site: hand (1st digit) Side (If applicable): right Size (cm): 1.5 Description: linear Depth: simple, single layer Local Anesthetic: lidocaine 1% Amount of anesthesia used (mL): 4 Pre-repair: wound explored and irrigated ====== Skin Level ====== Skin layer closed with: nylon Size (cm): 4-0 Number of sutures: 3 Technique: simple, interrupted ====== Subcutaneous Layer ====== ====== Muscle Layer ====== ====== Tendon Layer ====== MDM - Wound/Laceration MDM Narrative Medical decision making narrative: Laceration repaired without complications. Patient given wound care instructions and reasons to return. Tetanus already up-to-date. Medical Records Attestation: I reviewed the patient's medical records. Discharge Plan Discharge Clinical Impression: Laceration of thumb Qualifiers: Encounter type: initial encounter Damage to nail status: without damage Foreign body presence: without foreign body Laterality: right Qualified Code(s): S61.011A - Laceration without foreign body of right thumb without damage to nail, initial encounter Patient Disposition: Home Condition: Stable Instructions: Antibiotic Form, Care For Your Stitches (ED), Laceration (ED) Additional Instructions: Return to the ED or visit an urgent care or your PCP for follow-up and wound check/suture removal in 10 to 14 days. Keep the wound dry for 24 hours. You may remove the bandage after 24 hours and wash with simple soap and water, but do not scrub. Re-bandage if needed. Return to the ED if you experience uncontrolled bleeding, fever, chills, pus-like drainage, or redness/swelling/warmth surrounding the wound, as these could be signs of an infection. Patient Language: St Helen[place] Prescriptions: No Action albuterol sulfate 90 mcg/actuation HFA aerosol inhaler 2 - 4 puff INHALATION Q4H PRN (Reason: shortness of breath or wheezing) Qty: 18 0RF guaifenesin 1,200 mg tablet extended release 12hr 1,200 mg PO BID Qty: 20 0RF trazodone 50 mg tablet 50 mg PO HS Qty: 30 0RF Follow-up/Referrals: Michael,Roula Farah MD [Primary Care Provider] - Time of Disposition: 22:46
== END 2024-09-03 22:52 | disposition home or self-care (01) ==
PROVIDERS: Emergency Provider Physician Assistant; PCP Internal Medicine
DX: O9A.213 Injury, poisoning and certain other consequences of external causes complicating pregnancy, third trimester (principal); S61.011A Laceration without foreign body of right thumb without damage to nail, initial encounter; Z3A.35 35 weeks gestation of pregnancy; W26.0XXA Contact with knife, initial encounter; Y93.G1 Activity, food preparation and clean up
CPT/HCPCS: 12001; 99282; J2003